=== PATIENT | male | born 1970 | race Hispanic/Latino ===

== ENCOUNTER 2021-07-21 18:20 | Inpatient (IN) | payer BC, OTHER ==
[~2021-07-21] VITALS: Ht 170.2 cm; Wt 145.6 kg
[2021-07-21] MEDS ORDERED: CEFTRIAXONE 2 GM in SODIUM CHLORIDE 0.9% 100 ML IV SCH (19:30)
[2021-07-21 19:43] LABS: BASOPHILS % 0.2 % (0.0-1.0); HEMOGLOBIN 15.5 g/dL (14.0-18.0); LYMPHOCYTES # (AUTO) 1.2 (1.0-3.2); MEAN CORPUSCULAR HEMOGLOBIN 30.8 pg (28-32); MEAN CORPUSCULAR HGB CONC 35.2 g/dL (31-35); MEAN CORPUSCULAR VOLUME 87.3 fL (81-99); MONOCYTES # (AUTO) 0.6 (0.2-0.8); MONOCYTES % 4.9 % (4.4-11.3); NEUTROPHILS # (AUTO) 10.2 (2.1-6.9); NEUTROPHILS % 82.6 % (38.7-80.0); PLATELET COUNT 242 x10e3/uL (140-360); RED BLOOD COUNT 5.04 x10e6/uL (4.3-5.7); RED CELL DISTRIBUTION WIDTH 12.8 % (11.7-14.4)
[2021-07-21] MEDS ORDERED: REMDESIVIR 200MG 200 MG IV ONE (20:00)
[2021-07-21 20:08] LABS: ALBUMIN 2.7 g/dL (3.5-5.0); ALBUMIN/GLOBULIN RATIO 0.6 (0.8-2.0); ANION GAP 20.4 mmol/L (8-16); CALCIUM 9.2 mg/dL (8.4-10.2); CREATININE, SERUM 0.79 mg/dL (0.72-1.25); POTASSIUM 3.4 mmol/L (3.5-5.1)
[2021-07-21 20:14] LABS: CREATINE KINASE MB 3.2 ng/mL (0-5.0)
[2021-07-21] MEDS ORDERED: ACETAMINOPHEN 325 MG TAB ONE (20:22)
[2021-07-21] MEDS ORDERED: ACETAMINOPHEN 325 MG TAB PO ONE (20:30)
[2021-07-21] MEDS ORDERED: ONDANSETRON HCL INJ 2MG/ML 2ML 2 MG/ML VIAL IV PRN (22:15)
[2021-07-22] MEDS ORDERED: POTASSIUM CHLORIDE 20 MEQ TAB CR PO STA (03:00)
[2021-07-22] MEDS ORDERED: METHYLPREDNISOLONE SOD SUCC 125 MG/2ML VIAL IV ONE (03:00)
[2021-07-22] MEDS ORDERED: SODIUM CHLORIDE 0.9% IV ONE (03:15)
[2021-07-22] MEDS ORDERED: METHYLPREDNISOLONE SOD SUCC IV ONE (03:15)
[2021-07-22] MEDS: ACETAMINOPHEN 325 MG TAB PO PRN ×2 (04:54→20:04)
[2021-07-22] MEDS: GUAIFENESIN/CODEINE 10 ML CUP PO PRN (04:55)
[2021-07-22 06:36] LABS: BASOPHILS % 0.1 % (0.0-1.0); HEMATOCRIT 39.5 % (38.2-49.6); LYMPHOCYTES # (AUTO) 1.4 (1.0-3.2); MEAN CORPUSCULAR HEMOGLOBIN 30.8 pg (28-32); MEAN CORPUSCULAR HGB CONC 35.4 g/dL (31-35); MONOCYTES # (AUTO) 0.4 (0.2-0.8); MONOCYTES % 4.1 % (4.4-11.3); NEUTROPHILS # (AUTO) 8.7 (2.1-6.9); NEUTROPHILS % 81.8 % (38.7-80.0); PLATELET COUNT 240 x10e3/uL (140-360); RED BLOOD COUNT 4.54 x10e6/uL (4.3-5.7); RED CELL DISTRIBUTION WIDTH 13.1 % (11.7-14.4)
[2021-07-22 06:54] LABS: ALBUMIN 2.4 g/dL (3.5-5.0); ALBUMIN/GLOBULIN RATIO 0.6 (0.8-2.0); ANION GAP 16.5 mmol/L (8-16); CALCIUM 8.2 mg/dL (8.4-10.2); CREATININE, SERUM 0.7 mg/dL (0.72-1.25); POTASSIUM 3.5 mmol/L (3.5-5.1)
[2021-07-22 07:38] LABS: FERRITIN 1240.25 ng/mL (21.81-274.66)
[2021-07-22] MEDS: ASCORBIC ACID 500 MG TAB PO SCH ×2 (08:43→16:21)
[2021-07-22] MEDS: ENOXAPARIN SOD INJ 60 MG/0.6 ML SYR SC SCH ×2 (08:43→21:59)
[2021-07-22] MEDS: ZINC SULFATE 50 MG CAP PO SCH (08:43)
[2021-07-22] MEDS: METHYLPREDNISOLONE SOD SUCC 125 MG/2ML VIAL IV SCH ×3 (13:07→21:59)
[2021-07-22] MEDS: REMDESIVIR 100MG 100 MG IV SCH (15:01)
[2021-07-22] MEDS: CEFTRIAXONE 2 GM in SODIUM CHLORIDE 0.9% 100 ML IV SCH (21:59)
[2021-07-23] MEDS: GUAIFENESIN/CODEINE 10 ML CUP PO PRN ×2 (01:11→21:59)
[2021-07-23] MEDS: METHYLPREDNISOLONE SOD SUCC 125 MG/2ML VIAL IV SCH (04:58)
[2021-07-23] MEDS: ASCORBIC ACID 500 MG TAB PO SCH ×2 (09:00→17:36)
[2021-07-23] MEDS: ZINC SULFATE 50 MG CAP PO SCH (09:25)
[2021-07-23] MEDS: ENOXAPARIN SOD INJ 60 MG/0.6 ML SYR SC SCH ×2 (09:25→21:59)
[2021-07-23] MEDS: REMDESIVIR 100MG 100 MG IV SCH (14:36)
[2021-07-23] MEDS: BARICITINIB 2 MG TABLET PO SCH (14:36)
[2021-07-23] MEDS: CEFTRIAXONE 2 GM in SODIUM CHLORIDE 0.9% 100 ML IV SCH (21:59)
[2021-07-23] MEDS: ACETAMINOPHEN 325 MG TAB PO PRN (21:59)
[2021-07-24 05:56] LABS: BASOPHILS % 0.1 % (0.0-1.0); HEMATOCRIT 39.1 % (38.2-49.6); HEMOGLOBIN 13.4 g/dL (14.0-18.0); LYMPHOCYTES # (AUTO) 1.3 (1.0-3.2); LYMPHOCYTES % 8.5 % (18.0-39.1); MEAN CORPUSCULAR HEMOGLOBIN 30.7 pg (28-32); MEAN CORPUSCULAR HGB CONC 34.3 g/dL (31-35); MEAN CORPUSCULAR VOLUME 89.7 fL (81-99); MONOCYTES # (AUTO) 0.8 (0.2-0.8); MONOCYTES % 5.4 % (4.4-11.3); NEUTROPHILS # (AUTO) 12.8 (2.1-6.9); NEUTROPHILS % 84.9 % (38.7-80.0); PLATELET COUNT 212 x10e3/uL (140-360); RED BLOOD COUNT 4.36 x10e6/uL (4.3-5.7); RED CELL DISTRIBUTION WIDTH 13.1 % (11.7-14.4)
[2021-07-24 06:17] LABS: ALBUMIN 2.3 g/dL (3.5-5.0); ALBUMIN/GLOBULIN RATIO 0.6 (0.8-2.0); ANION GAP 15.6 mmol/L (8-16); CREATININE, SERUM 0.66 mg/dL (0.72-1.25); POTASSIUM 3.6 mmol/L (3.5-5.1)
[2021-07-24] MEDS: METHYLPREDNISOLONE SOD SUCC 125 MG/2ML VIAL IV SCH (09:17)
[2021-07-24] MEDS: ENOXAPARIN SOD INJ 60 MG/0.6 ML SYR SC SCH ×2 (09:17→22:15)
[2021-07-24] MEDS: ZINC SULFATE 50 MG CAP PO SCH (09:17)
[2021-07-24] MEDS: BARICITINIB 2 MG TABLET PO SCH (09:17)
[2021-07-24] MEDS: ASCORBIC ACID 500 MG TAB PO SCH ×2 (09:17→17:29)
[2021-07-24] MEDS: REMDESIVIR 100MG 100 MG IV SCH (17:29)
[2021-07-24] MEDS ORDERED: CEFTRIAXONE 1 GM in SODIUM CHLORIDE 0.9% 50ML 50 ML IV SCH (21:00)
[2021-07-24] MEDS: GUAIFENESIN/CODEINE 10 ML CUP PO PRN (23:00)
[2021-07-25 07:09] LABS: BASOPHILS % 0.2 % (0.0-1.0); EOSINOPHILS % 0.1 % (0.0-6.0); HEMATOCRIT 41.5 % (38.2-49.6); HEMOGLOBIN 14.3 g/dL (14.0-18.0); LYMPHOCYTES # (AUTO) 1.2 (1.0-3.2); LYMPHOCYTES % 8.2 % (18.0-39.1); MEAN CORPUSCULAR HEMOGLOBIN 30.9 pg (28-32); MEAN CORPUSCULAR HGB CONC 34.5 g/dL (31-35); MEAN CORPUSCULAR VOLUME 89.6 fL (81-99); MONOCYTES # (AUTO) 0.3 (0.2-0.8); MONOCYTES % 1.9 % (4.4-11.3); NEUTROPHILS # (AUTO) 12.5 (2.1-6.9); NEUTROPHILS % 87.8 % (38.7-80.0); PLATELET COUNT 142 x10e3/uL (140-360); RED BLOOD COUNT 4.63 x10e6/uL (4.3-5.7); RED CELL DISTRIBUTION WIDTH 13.4 % (11.7-14.4)
[2021-07-25 07:22] LABS: ALBUMIN 2.9 g/dL (3.5-5.0); ALBUMIN/GLOBULIN RATIO 0.8 (0.8-2.0); ANION GAP 13.8 mmol/L (8-16); CALCIUM 7.7 mg/dL (8.4-10.2); CREATININE, SERUM 0.69 mg/dL (0.72-1.25); POTASSIUM 3.8 mmol/L (3.5-5.1)
[2021-07-25] MEDS: METHYLPREDNISOLONE SOD SUCC 125 MG/2ML VIAL IV SCH (08:24)
[2021-07-25] MEDS: BARICITINIB 2 MG TABLET PO SCH (08:24)
[2021-07-25] MEDS: ZINC SULFATE 50 MG CAP PO SCH (08:24)
[2021-07-25] MEDS: ENOXAPARIN SOD INJ 60 MG/0.6 ML SYR SC SCH ×2 (08:24→23:00)
[2021-07-25] MEDS: ASCORBIC ACID 500 MG TAB PO SCH ×2 (08:24→17:50)
[2021-07-25] MEDS: REMDESIVIR 100MG 100 MG IV SCH (15:17)
[2021-07-25] MEDS: GUAIFENESIN/CODEINE 5 ML LIQD PO PRN (23:32)
[2021-07-26] VITALS (13 sets, daily range): BP systolic 97–138; BP diastolic 55–98
[2021-07-26] MEDS ORDERED: ACETAMINOPHEN 1000 MG/100 ML 100 ML IV ONE (01:28)
[2021-07-26] MEDS ORDERED: ACETAMINOPHEN 1000 MG/100 ML IV STA ×2 (02:05→11:43)
[2021-07-26 08:36] LABS: BASOPHILS % 0.2 % (0.0-1.0); EOSINOPHILS # (AUTO) 0.1 (0.0-0.4); EOSINOPHILS % 0.7 % (0.0-6.0); HEMATOCRIT 42.9 % (38.2-49.6); HEMOGLOBIN 14.8 g/dL (14.0-18.0); LYMPHOCYTES # (AUTO) 0.9 (1.0-3.2); LYMPHOCYTES % 5.6 % (18.0-39.1); MEAN CORPUSCULAR HEMOGLOBIN 31.2 pg (28-32); MEAN CORPUSCULAR HGB CONC 34.5 g/dL (31-35); MEAN CORPUSCULAR VOLUME 90.5 fL (81-99); MONOCYTES # (AUTO) 0.2 (0.2-0.8); MONOCYTES % 1.2 % (4.4-11.3); NEUTROPHILS % 90.4 % (38.7-80.0); PLATELET COUNT 149 x10e3/uL (140-360); RED BLOOD COUNT 4.74 x10e6/uL (4.3-5.7); RED CELL DISTRIBUTION WIDTH 13.2 % (11.7-14.4)
[2021-07-26] MEDS: BARICITINIB 2 MG TABLET PO SCH (09:00)
[2021-07-26] MEDS: METHYLPREDNISOLONE SOD SUCC 125 MG/2ML VIAL IV SCH (09:51)
[2021-07-26] MEDS: ASCORBIC ACID 500 MG TAB PO SCH ×2 (09:51→18:14)
[2021-07-26] MEDS: ZINC SULFATE 50 MG CAP PO SCH (09:51)
[2021-07-26] MEDS: ENOXAPARIN SOD INJ 60 MG/0.6 ML SYR SC SCH ×2 (09:51→20:54)
[2021-07-26] MEDS: PIPERACILLIN/TAZOBACTAM 3.375 GM in SODIUM CHLORIDE 0.9% 50ML 50 ML IV SCH ×2 (14:04→18:14)
[2021-07-26] MEDS: DEXMEDETOMIDINE 200MCG/NS 50ML 50 ML IV SCH ×3 (14:04→21:45)
[2021-07-27] VITALS (25 sets, daily range): BP systolic 106–141; BP diastolic 54–97
[2021-07-27] MEDS: PIPERACILLIN/TAZOBACTAM 3.375 GM in SODIUM CHLORIDE 0.9% 50ML 50 ML IV SCH ×4 (00:04→18:24)
[2021-07-27] MEDS: DEXMEDETOMIDINE 200MCG/NS 50ML 50 ML IV SCH ×8 (01:35→23:25)
[2021-07-27 05:48] LABS: BASOPHILS % 0.1 % (0.0-1.0); EOSINOPHILS # (AUTO) 0.1 (0.0-0.4); EOSINOPHILS % 0.5 % (0.0-6.0); HEMATOCRIT 42.6 % (38.2-49.6); HEMOGLOBIN 14.6 g/dL (14.0-18.0); LYMPHOCYTES # (AUTO) 0.8 (1.0-3.2); LYMPHOCYTES % 4.6 % (18.0-39.1); MEAN CORPUSCULAR HGB CONC 34.3 g/dL (31-35); MEAN CORPUSCULAR VOLUME 90.4 fL (81-99); MONOCYTES # (AUTO) 0.3 (0.2-0.8); MONOCYTES % 1.4 % (4.4-11.3); NEUTROPHILS % 92.1 % (38.7-80.0); PLATELET COUNT 169 x10e3/uL (140-360); RED BLOOD COUNT 4.71 x10e6/uL (4.3-5.7); RED CELL DISTRIBUTION WIDTH 13.2 % (11.7-14.4)
[2021-07-27 06:39] LABS: ANION GAP 17.6 mmol/L (8-16); CALCIUM 7.8 mg/dL (8.4-10.2); CREATININE, SERUM 0.59 mg/dL (0.72-1.25); POTASSIUM 4.6 mmol/L (3.5-5.1)
[2021-07-27 08:54] LABS: LYMPHOCYTES % (MANUAL) 1 % (19-48); MONOCYTES % (MANUAL) 1 % (3.4-9.0); NEUTROPHILS % (MANUAL) 98 % (40-74)
[2021-07-27 08:55] LABS: PLATELET ESTIMATE ADEQUATE; PLATELET MORPHOLOGY COMMENT NORMAL; RBC MORPHOLOGY COMMENT NORMAL
[2021-07-27] MEDS ORDERED: DEXAMETHASONE SOD PHOS 10 MG/1 ML VIAL IV SCH (09:00)
[2021-07-27] MEDS: METHYLPREDNISOLONE SOD SUCC 125 MG/2ML VIAL IV SCH (09:23)
[2021-07-27] MEDS: BARICITINIB 2 MG TABLET PO SCH (09:23)
[2021-07-27] MEDS: ENOXAPARIN SOD INJ 60 MG/0.6 ML SYR SC SCH ×2 (09:24→20:00)
[2021-07-27] MEDS: ZINC SULFATE 50 MG CAP PO SCH (09:24)
[2021-07-27] MEDS: ASCORBIC ACID 500 MG TAB PO SCH ×2 (09:24→16:40)
[2021-07-27] MEDS: ACETAMINOPHEN 325 MG TAB PO PRN (13:37)
[2021-07-28] VITALS (23 sets, daily range): BP systolic 88–138; BP diastolic 43–85
[2021-07-28] MEDS: PIPERACILLIN/TAZOBACTAM 3.375 GM in SODIUM CHLORIDE 0.9% 50ML 50 ML IV SCH ×4 (00:03→17:07)
[2021-07-28] MEDS: GUAIFENESIN/CODEINE 5 ML LIQD PO PRN ×3 (03:55→21:05)
[2021-07-28 05:53] LABS: BASOPHILS % 0.1 % (0.0-1.0); EOSINOPHILS % 0.1 % (0.0-6.0); HEMATOCRIT 44.2 % (38.2-49.6); HEMOGLOBIN 14.9 g/dL (14.0-18.0); LYMPHOCYTES # (AUTO) 0.8 (1.0-3.2); MEAN CORPUSCULAR HEMOGLOBIN 30.3 pg (28-32); MEAN CORPUSCULAR HGB CONC 33.7 g/dL (31-35); MONOCYTES # (AUTO) 0.4 (0.2-0.8); MONOCYTES % 2.3 % (4.4-11.3); NEUTROPHILS # (AUTO) 13.8 (2.1-6.9); NEUTROPHILS % 91.3 % (38.7-80.0); PLATELET COUNT 195 x10e3/uL (140-360); RED BLOOD COUNT 4.91 x10e6/uL (4.3-5.7)
[2021-07-28] MEDS: BARICITINIB 2 MG TABLET PO SCH (08:55)
[2021-07-28] MEDS: ZINC SULFATE 50 MG CAP PO SCH (08:55)
[2021-07-28] MEDS: ENOXAPARIN SOD INJ 60 MG/0.6 ML SYR SC SCH ×2 (08:55→21:04)
[2021-07-28] MEDS: ASCORBIC ACID 500 MG TAB PO SCH ×2 (08:55→16:38)
[2021-07-28] MEDS: METHYLPREDNISOLONE SOD SUCC 125 MG/2ML VIAL IV SCH (08:55)
[2021-07-28 10:06] LABS: ANION GAP 15.5 mmol/L (8-16); CREATININE, SERUM 0.61 mg/dL (0.72-1.25); POTASSIUM 4.5 mmol/L (3.5-5.1)
[2021-07-28] MEDS: DEXMEDETOMIDINE 100 ML IV PRN (14:15)
[2021-07-28] MEDS ORDERED: SODIUM CHLORIDE 0.9% 100 ML ONE (20:57)
[2021-07-29] VITALS (23 sets, daily range): BP systolic 82–135; BP diastolic 47–94
[2021-07-29] MEDS: PIPERACILLIN/TAZOBACTAM 3.375 GM in SODIUM CHLORIDE 0.9% 50ML 50 ML IV SCH ×4 (00:08→17:00)
[2021-07-29] MEDS: GUAIFENESIN/CODEINE 10 ML CUP PO PRN ×2 (05:05→20:48)
[2021-07-29] MEDS ORDERED: GUAIFENESIN/CODEINE 5 ML LIQD ONE ×2 (05:09→20:41)
[2021-07-29] MEDS: DEXMEDETOMIDINE 100 ML IV PRN (05:43)
[2021-07-29 05:57] LABS: BASOPHILS % 0.1 % (0.0-1.0); EOSINOPHILS # (AUTO) 0.1 (0.0-0.4); EOSINOPHILS % 0.6 % (0.0-6.0); HEMATOCRIT 42.8 % (38.2-49.6); HEMOGLOBIN 14.6 g/dL (14.0-18.0); LYMPHOCYTES # (AUTO) 1.1 (1.0-3.2); LYMPHOCYTES % 6.7 % (18.0-39.1); MEAN CORPUSCULAR HEMOGLOBIN 30.8 pg (28-32); MEAN CORPUSCULAR HGB CONC 34.1 g/dL (31-35); MEAN CORPUSCULAR VOLUME 90.3 fL (81-99); MONOCYTES # (AUTO) 0.4 (0.2-0.8); MONOCYTES % 2.4 % (4.4-11.3); NEUTROPHILS # (AUTO) 15.2 (2.1-6.9); NEUTROPHILS % 89.2 % (38.7-80.0); PLATELET COUNT 210 x10e3/uL (140-360); RED BLOOD COUNT 4.74 x10e6/uL (4.3-5.7); RED CELL DISTRIBUTION WIDTH 12.9 % (11.7-14.4)
[2021-07-29 06:45] LABS: ALBUMIN 2.6 g/dL (3.5-5.0); ALBUMIN/GLOBULIN RATIO 0.7 (0.8-2.0); ANION GAP 14.3 mmol/L (8-16); CREATININE, SERUM 0.6 mg/dL (0.72-1.25); POTASSIUM 4.3 mmol/L (3.5-5.1)
[2021-07-29] MEDS: BARICITINIB 2 MG TABLET PO SCH (08:30)
[2021-07-29] MEDS: METHYLPREDNISOLONE SOD SUCC 125 MG/2ML VIAL IV SCH (08:30)
[2021-07-29] MEDS: ASCORBIC ACID 500 MG TAB PO SCH ×2 (08:31→16:50)
[2021-07-29] MEDS: ZINC SULFATE 50 MG CAP PO SCH (08:31)
[2021-07-29] MEDS: ENOXAPARIN SOD INJ 60 MG/0.6 ML SYR SC SCH ×2 (08:31→20:48)
[2021-07-29] MEDS: ACETAMINOPHEN 325 MG TAB PO PRN ×2 (09:24→20:48)
[2021-07-30] VITALS (24 sets, daily range): BP systolic 94–139; BP diastolic 52–82
[2021-07-30] MEDS: PIPERACILLIN/TAZOBACTAM 3.375 GM in SODIUM CHLORIDE 0.9% 50ML 50 ML IV SCH ×4 (00:17→18:05)
[2021-07-30] MEDS ORDERED: GUAIFENESIN/CODEINE 5 ML LIQD ONE (04:31)
[2021-07-30] MEDS: GUAIFENESIN/CODEINE 10 ML CUP PO PRN (05:00)
[2021-07-30 06:22] LABS: BASOPHILS % 0.1 % (0.0-1.0); EOSINOPHILS # (AUTO) 0.1 (0.0-0.4); EOSINOPHILS % 0.9 % (0.0-6.0); HEMATOCRIT 43.2 % (38.2-49.6); HEMOGLOBIN 14.6 g/dL (14.0-18.0); LYMPHOCYTES # (AUTO) 0.9 (1.0-3.2); LYMPHOCYTES % 6.1 % (18.0-39.1); MEAN CORPUSCULAR HEMOGLOBIN 30.4 pg (28-32); MEAN CORPUSCULAR HGB CONC 33.8 g/dL (31-35); MONOCYTES # (AUTO) 0.5 (0.2-0.8); MONOCYTES % 3.1 % (4.4-11.3); NEUTROPHILS # (AUTO) 13.7 (2.1-6.9); NEUTROPHILS % 88.6 % (38.7-80.0); PLATELET COUNT 215 x10e3/uL (140-360); RED CELL DISTRIBUTION WIDTH 12.8 % (11.7-14.4)
[2021-07-30] MEDS: DEXMEDETOMIDINE 100 ML IV PRN ×2 (06:24→19:52)
[2021-07-30 06:34] LABS: ANION GAP 13.3 mmol/L (8-16); CREATININE, SERUM 0.55 mg/dL (0.72-1.25); POTASSIUM 4.3 mmol/L (3.5-5.1)
[2021-07-30] MEDS: ASCORBIC ACID 500 MG TAB PO SCH ×2 (08:26→18:05)
[2021-07-30] MEDS: ENOXAPARIN SOD INJ 60 MG/0.6 ML SYR SC SCH ×2 (08:26→20:52)
[2021-07-30] MEDS: ZINC SULFATE 50 MG CAP PO SCH (08:26)
[2021-07-30] MEDS: BARICITINIB 2 MG TABLET PO SCH (08:26)
[2021-07-30] MEDS ORDERED: SODIUM CHLORIDE 0.9% 50ML 50 ML ONE (12:37)
[2021-07-30] MEDS ORDERED: WATER STERILE 10 ML VIAL ONE (13:00)
[2021-07-30] MEDS ORDERED: SUCCINYLCHOLINE CHLORIDE 20 MG/ML 10ML VIAL ONE (13:00)
[2021-07-30] MEDS ORDERED: VECURONIUM BROMIDE FOR INJ 20 MG VIAL ONE (13:00)
[2021-07-30] MEDS ORDERED: ETOMIDATE 2 MG/ML 10 ML INJ IV ONE (13:00)
[2021-07-30] MEDS ORDERED: GUAIFENESIN/CODEINE 5 ML LIQD PO PRN (13:45)
[2021-07-30] MEDS: ACETAMINOPHEN 325 MG TAB PO PRN (20:53)
[2021-07-31] VITALS (28 sets, daily range): BP systolic 88–135; BP diastolic 50–88
[2021-07-31] MEDS: PIPERACILLIN/TAZOBACTAM 3.375 GM in SODIUM CHLORIDE 0.9% 50ML 50 ML IV SCH ×5 (00:01→23:38)
[2021-07-31 06:05] LABS: BASOPHILS % 0.1 % (0.0-1.0); EOSINOPHILS # (AUTO) 0.2 (0.0-0.4); EOSINOPHILS % 1.1 % (0.0-6.0); HEMOGLOBIN 15.8 g/dL (14.0-18.0); LYMPHOCYTES # (AUTO) 1.2 (1.0-3.2); MEAN CORPUSCULAR HEMOGLOBIN 30.6 pg (28-32); MEAN CORPUSCULAR HGB CONC 34.3 g/dL (31-35); MEAN CORPUSCULAR VOLUME 89.1 fL (81-99); MONOCYTES # (AUTO) 0.4 (0.2-0.8); MONOCYTES % 2.1 % (4.4-11.3); NEUTROPHILS # (AUTO) 14.7 (2.1-6.9); NEUTROPHILS % 88.3 % (38.7-80.0); PLATELET COUNT 226 x10e3/uL (140-360); RED BLOOD COUNT 5.16 x10e6/uL (4.3-5.7); RED CELL DISTRIBUTION WIDTH 12.8 % (11.7-14.4)
[2021-07-31 06:16] LABS: ANION GAP 13.2 mmol/L (8-16); CREATININE, SERUM 0.56 mg/dL (0.72-1.25); POTASSIUM 4.2 mmol/L (3.5-5.1)
[2021-07-31] MEDS: DEXMEDETOMIDINE 100 ML IV PRN (08:11)
[2021-07-31] MEDS: ENOXAPARIN SOD INJ 60 MG/0.6 ML SYR SC SCH ×2 (08:44→20:16)
[2021-07-31] MEDS: ZINC SULFATE 50 MG CAP PO SCH (08:44)
[2021-07-31] MEDS: ASCORBIC ACID 500 MG TAB PO SCH ×2 (08:44→16:47)
[2021-07-31] MEDS: BARICITINIB 2 MG TABLET PO SCH (08:44)
[2021-07-31] MEDS ORDERED: ROCURONIUM BROMIDE 1,250 MG in SODIUM CHLORIDE 0.9% 250ML 125 ML IV SCH (13:00)
[2021-07-31] MEDS: FENTANYL 2000MCG/NS 250 250 ML IV SCH ×2 (13:33→20:04)
[2021-07-31] MEDS: ROCURONIUM 1250MG/NS 250 250 ML IV SCH (13:34)
[2021-07-31] MEDS: MIDAZOLAM HCL 5MG/ML 10ML VIAL 100 ML IV PRN ×3 (13:34→23:39)
[2021-07-31 17:00] LABS: ABG HCO3 26 mmol/L (22-26); ABG PCO2 47 mmHg (35-45); ABG PH 7.35 (7.35-7.45); ABG PO2 95 mmHg (80-105); ABG TCO2 27
[2021-07-31] MEDS ORDERED: LACTATED RINGER'S 1,000 ML ONE (18:35)
[2021-07-31] MEDS ORDERED: LACTATED RINGER'S 500 ML IV ONE (18:45)
[2021-08-01] VITALS (25 sets, daily range): BP systolic 95–153; BP diastolic 58–74
[2021-08-01] MEDS: FENTANYL 2000MCG/NS 250 250 ML IV SCH ×3 (02:27→16:29)
[2021-08-01] MEDS: MIDAZOLAM HCL 5MG/ML 10ML VIAL 100 ML IV PRN ×4 (04:12→20:07)
[2021-08-01 06:06] LABS: ALBUMIN 2.4 g/dL (3.5-5.0); ALBUMIN/GLOBULIN RATIO 0.6 (0.8-2.0); CALCIUM 8.1 mg/dL (8.4-10.2); CREATININE, SERUM 0.63 mg/dL (0.72-1.25)
[2021-08-01] MEDS: PIPERACILLIN/TAZOBACTAM 3.375 GM in SODIUM CHLORIDE 0.9% 50ML 50 ML IV SCH ×4 (06:17→23:59)
[2021-08-01 06:23] LABS: BASOPHILS % 0.2 % (0.0-1.0); EOSINOPHILS # (AUTO) 0.1 (0.0-0.4); EOSINOPHILS % 0.8 % (0.0-6.0); HEMATOCRIT 44.1 % (38.2-49.6); HEMOGLOBIN 14.9 g/dL (14.0-18.0); LYMPHOCYTES # (AUTO) 1.2 (1.0-3.2); LYMPHOCYTES % 6.4 % (18.0-39.1); MEAN CORPUSCULAR HEMOGLOBIN 30.8 pg (28-32); MEAN CORPUSCULAR HGB CONC 33.8 g/dL (31-35); MEAN CORPUSCULAR VOLUME 91.3 fL (81-99); MONOCYTES # (AUTO) 0.6 (0.2-0.8); MONOCYTES % 3.3 % (4.4-11.3); NEUTROPHILS # (AUTO) 15.7 (2.1-6.9); NEUTROPHILS % 86.9 % (38.7-80.0); PLATELET COUNT 221 x10e3/uL (140-360); RED BLOOD COUNT 4.83 x10e6/uL (4.3-5.7); RED CELL DISTRIBUTION WIDTH 13.2 % (11.7-14.4)
[2021-08-01] MEDS: ENOXAPARIN SOD INJ 60 MG/0.6 ML SYR SC SCH ×2 (08:15→22:00)
[2021-08-01] MEDS: ZINC SULFATE 50 MG CAP PO SCH (08:15)
[2021-08-01] MEDS: ASCORBIC ACID 500 MG TAB PO SCH ×2 (08:15→16:29)
[2021-08-01] MEDS: BARICITINIB 2 MG TABLET PO SCH (08:15)
[2021-08-01] MEDS: ROCURONIUM 1250MG/NS 250 250 ML IV SCH (08:29)
[2021-08-01 08:41] LABS: ABG PH 7.37 (7.35-7.45)
[2021-08-01 08:42] LABS: ABG HCO3 27 mmol/L (22-26); ABG PCO2 47 mmHg (35-45); ABG PO2 126 mmHg (80-105); ABG TCO2 28
[2021-08-01] MEDS ORDERED: LACTATED RINGER'S 500 ML IV ONE (19:15)
[2021-08-02] VITALS (25 sets, daily range): BP systolic 100–171; BP diastolic 57–97
[2021-08-02] MEDS: MIDAZOLAM HCL 5MG/ML 10ML VIAL 100 ML IV PRN ×5 (01:35→23:09)
[2021-08-02 05:50] LABS: BASOPHILS % 0.2 % (0.0-1.0); EOSINOPHILS # (AUTO) 0.2 (0.0-0.4); EOSINOPHILS % 1.1 % (0.0-6.0); HEMATOCRIT 45.2 % (38.2-49.6); HEMOGLOBIN 14.7 g/dL (14.0-18.0); LYMPHOCYTES # (AUTO) 1.9 (1.0-3.2); LYMPHOCYTES % 10.9 % (18.0-39.1); MEAN CORPUSCULAR HEMOGLOBIN 31.1 pg (28-32); MEAN CORPUSCULAR HGB CONC 32.5 g/dL (31-35); MEAN CORPUSCULAR VOLUME 95.6 fL (81-99); MONOCYTES # (AUTO) 0.9 (0.2-0.8); MONOCYTES % 4.9 % (4.4-11.3); NEUTROPHILS # (AUTO) 13.9 (2.1-6.9); NEUTROPHILS % 79.3 % (38.7-80.0); PLATELET COUNT 244 x10e3/uL (140-360); RED BLOOD COUNT 4.73 x10e6/uL (4.3-5.7); RED CELL DISTRIBUTION WIDTH 13.6 % (11.7-14.4)
[2021-08-02] MEDS: PIPERACILLIN/TAZOBACTAM 3.375 GM in SODIUM CHLORIDE 0.9% 50ML 50 ML IV SCH ×3 (06:03→17:37)
[2021-08-02 06:28] LABS: ALBUMIN 2.5 g/dL (3.5-5.0); ALBUMIN/GLOBULIN RATIO 0.6 (0.8-2.0); ANION GAP 15.3 mmol/L (8-16); CALCIUM 7.8 mg/dL (8.4-10.2); CREATININE, SERUM 0.59 mg/dL (0.72-1.25); POTASSIUM 4.3 mmol/L (3.5-5.1)
[2021-08-02] MEDS: ROCURONIUM 1250MG/NS 250 250 ML IV SCH ×2 (06:50→22:30)
[2021-08-02] MEDS: FENTANYL 2000MCG/NS 250 250 ML IV SCH ×2 (07:51→21:01)
[2021-08-02] MEDS: BARICITINIB 2 MG TABLET PO SCH (08:29)
[2021-08-02] MEDS: ASCORBIC ACID 500 MG TAB PO SCH ×2 (08:29→17:37)
[2021-08-02] MEDS: ZINC SULFATE 50 MG CAP PO SCH ×2 (08:30→13:21)
[2021-08-02] MEDS: ENOXAPARIN SOD INJ 60 MG/0.6 ML SYR SC SCH ×2 (08:30→21:04)
[2021-08-02 09:25] LABS: ABG PH 7.19 (7.35-7.45)
[2021-08-02 09:26] LABS: ABG PCO2 83 mmHg (35-45); ABG PO2 109 mmHg (80-105)
[2021-08-02 09:27] LABS: ABG HCO3 32 mmol/L (22-26); ABG TCO2 34
[2021-08-02 17:33] LABS: ABG HCO3 32 mmol/L (22-26); ABG PCO2 47 mmHg (35-45); ABG PH 7.44 (7.35-7.45); ABG PO2 110 mmHg (80-105); ABG TCO2 33
[2021-08-03] VITALS (23 sets, daily range): BP systolic 98–162; BP diastolic 57–98
[2021-08-03] MEDS ORDERED: SODIUM CHLORIDE 0.9% 50ML 50 ML ONE (00:19)
[2021-08-03] MEDS: PIPERACILLIN/TAZOBACTAM 3.375 GM in SODIUM CHLORIDE 0.9% 50ML 50 ML IV SCH ×4 (00:33→18:00)
[2021-08-03] MEDS: FENTANYL 2000MCG/NS 250 250 ML IV SCH ×2 (04:01→17:13)
[2021-08-03] MEDS: MIDAZOLAM HCL 5MG/ML 10ML VIAL 100 ML IV PRN ×4 (04:02→17:12)
[2021-08-03] MEDS: ROCURONIUM 1250MG/NS 250 250 ML IV SCH (04:13)
[2021-08-03 06:45] LABS: BASOPHILS # (AUTO) 0.1 (0.0-0.1); BASOPHILS % 0.3 % (0.0-1.0); EOSINOPHILS # (AUTO) 0.2 (0.0-0.4); EOSINOPHILS % 1.3 % (0.0-6.0); LYMPHOCYTES # (AUTO) 1.4 (1.0-3.2); MEAN CORPUSCULAR HEMOGLOBIN 31.1 pg (28-32); MEAN CORPUSCULAR HGB CONC 33.3 g/dL (31-35); MEAN CORPUSCULAR VOLUME 93.3 fL (81-99); MONOCYTES # (AUTO) 0.8 (0.2-0.8); MONOCYTES % 5.3 % (4.4-11.3); NEUTROPHILS # (AUTO) 11.4 (2.1-6.9); PLATELET COUNT 280 x10e3/uL (140-360); RED CELL DISTRIBUTION WIDTH 13.9 % (11.7-14.4)
[2021-08-03 07:15] LABS: ALBUMIN 1.8 g/dL (3.5-5.0); ALBUMIN/GLOBULIN RATIO 0.4 (0.8-2.0); ANION GAP 13.8 mmol/L (8-16); CALCIUM 7.9 mg/dL (8.4-10.2); CREATININE, SERUM 0.55 mg/dL (0.72-1.25); POTASSIUM 3.8 mmol/L (3.5-5.1)
[2021-08-03] MEDS: BARICITINIB 2 MG TABLET PO SCH (09:01)
[2021-08-03] MEDS: ASCORBIC ACID 500 MG TAB PO SCH ×2 (09:01→16:39)
[2021-08-03] MEDS: ENOXAPARIN SOD INJ 60 MG/0.6 ML SYR SC SCH ×2 (09:01→21:07)
[2021-08-03 09:06] LABS: ABG HCO3 30 mmol/L (22-26); ABG PCO2 41 mmHg (35-45); ABG PH 7.47 (7.35-7.45); ABG PO2 130 mmHg (80-105); ABG TCO2 31
[2021-08-03] MEDS ORDERED: PROPOFOL IV EMULSION 10MG/ML 100 ML IV SCH (13:45)
[2021-08-03] MEDS ORDERED: ALBUTEROL SULF 0.083% NEB SOLN 3 ML NEB NEB PRN (14:00)
[2021-08-03] MEDS ORDERED: METHYLPREDNISOLONE SOD SUCC 125 MG/2ML VIAL IV ONE (14:00)
[2021-08-03] MEDS ORDERED: PROPOFOL IV EMULSION 50 ML IV ONE (14:01)
[2021-08-03] MEDS: PROPOFOL IV EMULSION 50 ML IV SCH (14:02)
[2021-08-03 17:01] LABS: ABG HCO3 29 mmol/L (22-26); ABG PCO2 44 mmHg (35-45); ABG PH 7.44 (7.35-7.45); ABG PO2 66 mmHg (80-105); ABG TCO2 31
[2021-08-04] VITALS (25 sets, daily range): BP systolic 90–141; BP diastolic 41–72
[2021-08-04] MEDS: PIPERACILLIN/TAZOBACTAM 3.375 GM in SODIUM CHLORIDE 0.9% 50ML 50 ML IV SCH ×4 (00:36→17:11)
[2021-08-04] MEDS: ROCURONIUM 1250MG/NS 250 250 ML IV SCH (07:00)
[2021-08-04 07:32] LABS: ALBUMIN 1.7 g/dL (3.5-5.0); ALBUMIN/GLOBULIN RATIO 0.4 (0.8-2.0); ANION GAP 12.2 mmol/L (8-16); CALCIUM 7.8 mg/dL (8.4-10.2); CREATININE, SERUM 0.55 mg/dL (0.72-1.25); POTASSIUM 4.2 mmol/L (3.5-5.1)
[2021-08-04 08:54] LABS: BASOPHILS % 0.2 % (0.0-1.0); EOSINOPHILS % 0.1 % (0.0-6.0); HEMATOCRIT 34.7 % (38.2-49.6); LYMPHOCYTES # (AUTO) 1.2 (1.0-3.2); LYMPHOCYTES % 8.6 % (18.0-39.1); MEAN CORPUSCULAR HEMOGLOBIN 30.8 pg (28-32); MEAN CORPUSCULAR HGB CONC 32.6 g/dL (31-35); MEAN CORPUSCULAR VOLUME 94.6 fL (81-99); MONOCYTES # (AUTO) 0.5 (0.2-0.8); MONOCYTES % 3.6 % (4.4-11.3); NEUTROPHILS # (AUTO) 11.1 (2.1-6.9); PLATELET COUNT 215 x10e3/uL (140-360); RED BLOOD COUNT 3.67 x10e6/uL (4.3-5.7); RED CELL DISTRIBUTION WIDTH 13.8 % (11.7-14.4)
[2021-08-04 08:59] LABS: HEMOGLOBIN 11.3 g/dL (14.0-18.0)
[2021-08-04 09:15] LABS: ABG HCO3 26 mmol/L (22-26); ABG PCO2 41 mmHg (35-45); ABG PH 7.41 (7.35-7.45); ABG PO2 77 mmHg (80-105); ABG TCO2 27
[2021-08-04] MEDS: ENOXAPARIN SOD INJ 60 MG/0.6 ML SYR SC SCH ×2 (09:50→21:29)
[2021-08-04] MEDS: BARICITINIB 2 MG TABLET PO SCH (09:50)
[2021-08-04] MEDS: ASCORBIC ACID 500 MG TAB PO SCH ×2 (09:50→17:11)
[2021-08-04] MEDS: ZINC SULFATE 50 MG CAP PO SCH (09:50)
[2021-08-04] MEDS: MIDAZOLAM HCL 5MG/ML 10ML VIAL 100 ML IV PRN ×2 (09:51→18:49)
[2021-08-04] MEDS: FENTANYL 2000MCG/NS 250 250 ML IV SCH ×2 (13:50→21:50)
[2021-08-04] MEDS ORDERED: NOREPINEPHRINE 8 MG/D5W 250 ML 250 ML IV PRN (17:00)
[2021-08-04] MEDS: PROPOFOL IV EMULSION 50 ML IV SCH (18:48)
[2021-08-05] VITALS (25 sets, daily range): BP systolic 107–151; BP diastolic 42–83
[2021-08-05] MEDS: PIPERACILLIN/TAZOBACTAM 3.375 GM in SODIUM CHLORIDE 0.9% 50ML 50 ML IV SCH ×2 (00:22→06:02)
[2021-08-05] MEDS: MIDAZOLAM HCL 5MG/ML 10ML VIAL 100 ML IV PRN ×3 (01:54→19:40)
[2021-08-05] MEDS: FENTANYL 2000MCG/NS 250 250 ML IV SCH ×3 (05:50→21:44)
[2021-08-05 06:36] LABS: BASOPHILS # (AUTO) 0.1 (0.0-0.1); BASOPHILS % 0.5 % (0.0-1.0); EOSINOPHILS # (AUTO) 0.2 (0.0-0.4); EOSINOPHILS % 1.5 % (0.0-6.0); HEMATOCRIT 34.5 % (38.2-49.6); HEMOGLOBIN 11.4 g/dL (14.0-18.0); LYMPHOCYTES # (AUTO) 2.6 (1.0-3.2); LYMPHOCYTES % 17.8 % (18.0-39.1); MEAN CORPUSCULAR HEMOGLOBIN 31.4 pg (28-32); MONOCYTES # (AUTO) 0.7 (0.2-0.8); NEUTROPHILS # (AUTO) 9.6 (2.1-6.9); NEUTROPHILS % 66.1 % (38.7-80.0); PLATELET COUNT 216 x10e3/uL (140-360); RED BLOOD COUNT 3.63 x10e6/uL (4.3-5.7); RED CELL DISTRIBUTION WIDTH 13.9 % (11.7-14.4)
[2021-08-05 07:16] LABS: ALBUMIN 1.6 g/dL (3.5-5.0); ALBUMIN/GLOBULIN RATIO 0.5 (0.8-2.0); ANION GAP 11.8 mmol/L (8-16); CALCIUM 7.4 mg/dL (8.4-10.2); CREATININE, SERUM 0.5 mg/dL (0.72-1.25); POTASSIUM 3.8 mmol/L (3.5-5.1)
[2021-08-05] MEDS: ASCORBIC ACID 500 MG TAB PO SCH ×2 (08:42→09:49)
[2021-08-05] MEDS: BARICITINIB 2 MG TABLET PO SCH (08:42)
[2021-08-05] MEDS: ZINC SULFATE 50 MG CAP PO SCH (08:42)
[2021-08-05] MEDS: ENOXAPARIN SOD INJ 60 MG/0.6 ML SYR SC SCH ×2 (08:43→21:45)
[2021-08-05] MEDS ORDERED: ALBUMIN 25% 25GM 100ML 0.25 GM/ML BTL IV SCH (09:00)
[2021-08-05] MEDS: FUROSEMIDE INJ 10 MG/ML 4 ML VIAL IV SCH ×2 (09:48→21:45)
[2021-08-05 09:50] LABS: ABG PCO2 38 mmHg (35-45); ABG PH 7.42 (7.35-7.45)
[2021-08-05 09:51] LABS: ABG HCO3 25 mmol/L (22-26); ABG PO2 89 mmHg (80-105); ABG TCO2 26
[2021-08-05] MEDS: ALBUMIN 25% 25GM 100ML 100 ML IV SCH ×2 (09:51→10:46)
[2021-08-05] MEDS ORDERED: ALBUMIN 25% 12.5GM 50ML 100 ML IV SCH (14:00)
[2021-08-05] MEDS: PROPOFOL IV EMULSION 50 ML IV SCH ×2 (16:23→21:45)
[2021-08-06] VITALS (26 sets, daily range): BP systolic 102–127; BP diastolic 45–79
[2021-08-06] MEDS: MIDAZOLAM HCL 5MG/ML 10ML VIAL 100 ML IV PRN ×5 (00:48→22:37)
[2021-08-06] MEDS: FENTANYL 2000MCG/NS 250 250 ML IV SCH ×3 (05:49→19:12)
[2021-08-06 06:20] LABS: BASOPHILS # (AUTO) 0.1 (0.0-0.1); BASOPHILS % 0.4 % (0.0-1.0); EOSINOPHILS # (AUTO) 0.4 (0.0-0.4); EOSINOPHILS % 2.4 % (0.0-6.0); HEMATOCRIT 37.4 % (38.2-49.6); HEMOGLOBIN 12.3 g/dL (14.0-18.0); LYMPHOCYTES # (AUTO) 1.9 (1.0-3.2); LYMPHOCYTES % 11.4 % (18.0-39.1); MEAN CORPUSCULAR HGB CONC 32.9 g/dL (31-35); MEAN CORPUSCULAR VOLUME 94.2 fL (81-99); MONOCYTES # (AUTO) 0.9 (0.2-0.8); MONOCYTES % 5.3 % (4.4-11.3); NEUTROPHILS # (AUTO) 11.7 (2.1-6.9); NEUTROPHILS % 71.7 % (38.7-80.0); PLATELET COUNT 278 x10e3/uL (140-360); RED BLOOD COUNT 3.97 x10e6/uL (4.3-5.7); RED CELL DISTRIBUTION WIDTH 13.9 % (11.7-14.4)
[2021-08-06 06:55] LABS: ALBUMIN 2.3 g/dL (3.5-5.0); ALBUMIN/GLOBULIN RATIO 0.6 (0.8-2.0); ANION GAP 13.5 mmol/L (8-16); CALCIUM 8.1 mg/dL (8.4-10.2); CREATININE, SERUM 0.57 mg/dL (0.72-1.25); POTASSIUM 3.5 mmol/L (3.5-5.1)
[2021-08-06] MEDS: ENOXAPARIN SOD INJ 60 MG/0.6 ML SYR SC SCH ×2 (08:04→20:19)
[2021-08-06] MEDS: ZINC SULFATE 50 MG CAP PO SCH (08:04)
[2021-08-06] MEDS: BARICITINIB 2 MG TABLET PO SCH (08:04)
[2021-08-06] MEDS: ASCORBIC ACID 500 MG TAB PO SCH ×3 (08:04→16:47)
[2021-08-06] MEDS ORDERED: POTASSIUM CHLORIDE 20MEQ/100ML 200 ML IV ONE (08:30)
[2021-08-06] MEDS ORDERED: PROPOFOL IV EMULSION 10MG/ML 100 ML ONE (08:39)
[2021-08-06 09:15] LABS: ABG HCO3 30 mmol/L (22-26); ABG PCO2 47 mmHg (35-45); ABG PH 7.41 (7.35-7.45); ABG PO2 93 mmHg (80-105); ABG TCO2 31
[2021-08-06] MEDS: PROPOFOL IV EMULSION 50 ML IV SCH (20:22)
[2021-08-07] VITALS (25 sets, daily range): BP systolic 101–170; BP diastolic 36–86
[2021-08-07] MEDS: FENTANYL 2000MCG/NS 250 250 ML IV SCH ×3 (02:46→18:42)
[2021-08-07] MEDS: MIDAZOLAM HCL 5MG/ML 10ML VIAL 100 ML IV PRN ×3 (04:11→17:00)
[2021-08-07 05:58] LABS: BASOPHILS # (AUTO) 0.1 (0.0-0.1); BASOPHILS % 0.4 % (0.0-1.0); EOSINOPHILS # (AUTO) 0.6 (0.0-0.4); EOSINOPHILS % 4.4 % (0.0-6.0); HEMATOCRIT 34.2 % (38.2-49.6); HEMOGLOBIN 11.3 g/dL (14.0-18.0); LYMPHOCYTES # (AUTO) 1.3 (1.0-3.2); LYMPHOCYTES % 10.2 % (18.0-39.1); MEAN CORPUSCULAR HEMOGLOBIN 31.2 pg (28-32); MEAN CORPUSCULAR VOLUME 94.5 fL (81-99); MONOCYTES # (AUTO) 0.6 (0.2-0.8); MONOCYTES % 4.8 % (4.4-11.3); NEUTROPHILS # (AUTO) 8.8 (2.1-6.9); NEUTROPHILS % 70.2 % (38.7-80.0); PLATELET COUNT 244 x10e3/uL (140-360); RED BLOOD COUNT 3.62 x10e6/uL (4.3-5.7); RED CELL DISTRIBUTION WIDTH 14.1 % (11.7-14.4)
[2021-08-07 06:32] LABS: ALBUMIN/GLOBULIN RATIO 0.5 (0.8-2.0); ANION GAP 12.8 mmol/L (8-16); CALCIUM 7.9 mg/dL (8.4-10.2); CREATININE, SERUM 0.53 mg/dL (0.72-1.25); POTASSIUM 3.8 mmol/L (3.5-5.1)
[2021-08-07] MEDS: PROPOFOL IV EMULSION 50 ML IV SCH ×2 (06:40→19:06)
[2021-08-07] MEDS: ASCORBIC ACID 500 MG TAB PO SCH ×2 (08:55→16:34)
[2021-08-07] MEDS: ENOXAPARIN SOD INJ 60 MG/0.6 ML SYR SC SCH ×2 (08:55→21:54)
[2021-08-07] MEDS: ZINC SULFATE 50 MG CAP PO SCH (08:55)
[2021-08-07 09:36] LABS: ABG PCO2 49 mmHg (35-45); ABG PH 7.44 (7.35-7.45); ABG PO2 85 mmHg (80-105)
[2021-08-07 09:37] LABS: ABG HCO3 33 mmol/L (22-26); ABG TCO2 35
[2021-08-07] MEDS ORDERED: FUROSEMIDE INJ 10 MG/ML 4 ML VIAL IV ONE ×2 (11:45→15:30)
[2021-08-07] MEDS ORDERED: LACTULOSE SYRUP 20 GM/30 ML UDC PO ONE ×2 (11:45→15:30)
[2021-08-07] MEDS: DOCUSATE SODIUM LIQD 100 MG/10 ML UDC NG SCH (16:34)
[2021-08-08] VITALS (22 sets, daily range): BP systolic 103–138; BP diastolic 52–98
[2021-08-08 06:19] LABS: BASOPHILS # (AUTO) 0.1 (0.0-0.1); BASOPHILS % 0.5 % (0.0-1.0); EOSINOPHILS # (AUTO) 0.6 (0.0-0.4); EOSINOPHILS % 3.7 % (0.0-6.0); HEMATOCRIT 35.9 % (38.2-49.6); HEMOGLOBIN 11.7 g/dL (14.0-18.0); LYMPHOCYTES # (AUTO) 1.1 (1.0-3.2); LYMPHOCYTES % 6.8 % (18.0-39.1); MEAN CORPUSCULAR HEMOGLOBIN 30.8 pg (28-32); MEAN CORPUSCULAR HGB CONC 32.6 g/dL (31-35); MEAN CORPUSCULAR VOLUME 94.5 fL (81-99); MONOCYTES # (AUTO) 0.6 (0.2-0.8); NEUTROPHILS % 78.2 % (38.7-80.0); PLATELET COUNT 278 x10e3/uL (140-360)
[2021-08-08 06:49] LABS: ALBUMIN 2.1 g/dL (3.5-5.0); ALBUMIN/GLOBULIN RATIO 0.5 (0.8-2.0); ANION GAP 12.6 mmol/L (8-16); CALCIUM 7.9 mg/dL (8.4-10.2); CREATININE, SERUM 0.49 mg/dL (0.72-1.25); POTASSIUM 3.6 mmol/L (3.5-5.1)
[2021-08-08] MEDS: ENOXAPARIN SOD INJ 60 MG/0.6 ML SYR SC SCH (08:29)
[2021-08-08] MEDS: ZINC SULFATE 50 MG CAP PO SCH (08:29)
[2021-08-08] MEDS: ASCORBIC ACID 500 MG TAB PO SCH ×2 (08:29→19:15)
[2021-08-08] MEDS: DOCUSATE SODIUM LIQD 100 MG/10 ML UDC NG SCH ×2 (08:29→19:15)
[2021-08-08 08:44] LABS: ABG HCO3 32 mmol/L (22-26); ABG PCO2 52 mmHg (35-45); ABG PO2 84 mmHg (80-105); ABG TCO2 34
[2021-08-08] MEDS: MIDAZOLAM HCL 5MG/ML 10ML VIAL 100 ML IV PRN ×3 (09:00→22:20)
[2021-08-08] MEDS ORDERED: ALBUMIN 25% 25GM 100ML 0.25 GM/ML BTL IV SCH (09:30)
[2021-08-08] MEDS: FUROSEMIDE INJ 10 MG/ML 4 ML VIAL IV SCH ×2 (11:10→21:21)
[2021-08-08] MEDS: ALBUMIN 25% 25GM 100ML 100 ML IV SCH ×2 (11:10→19:24)
[2021-08-08 11:57] LABS: ABG HCO3 33 mmol/L (22-26); ABG PCO2 54 mmHg (35-45); ABG PO2 61 mmHg (80-105); ABG TCO2 35
[2021-08-08] MEDS: PROPOFOL IV EMULSION 50 ML IV SCH ×3 (13:56→19:48)
[2021-08-08] MEDS: FENTANYL 2000MCG/NS 250 250 ML IV SCH ×2 (13:57→22:11)
[2021-08-08] MEDS: ENOXAPARIN SODIUM INJ 100 MG/ML SYR SC SCH (21:21)
[2021-08-09] VITALS (27 sets, daily range): BP systolic 91–133; BP diastolic 42–60
[2021-08-09] MEDS: ALBUMIN 25% 25GM 100ML 100 ML IV SCH (01:57)
[2021-08-09] MEDS: MIDAZOLAM HCL 5MG/ML 10ML VIAL 100 ML IV PRN ×5 (03:34→19:14)
[2021-08-09 06:09] LABS: BASOPHILS # (AUTO) 0.1 (0.0-0.1); BASOPHILS % 0.5 % (0.0-1.0); EOSINOPHILS # (AUTO) 0.9 (0.0-0.4); EOSINOPHILS % 6.5 % (0.0-6.0); HEMATOCRIT 32.7 % (38.2-49.6); HEMOGLOBIN 10.7 g/dL (14.0-18.0); LYMPHOCYTES # (AUTO) 1.3 (1.0-3.2); LYMPHOCYTES % 9.9 % (18.0-39.1); MEAN CORPUSCULAR HEMOGLOBIN 31.1 pg (28-32); MEAN CORPUSCULAR HGB CONC 32.7 g/dL (31-35); MEAN CORPUSCULAR VOLUME 95.1 fL (81-99); MONOCYTES # (AUTO) 0.8 (0.2-0.8); MONOCYTES % 5.7 % (4.4-11.3); NEUTROPHILS # (AUTO) 9.6 (2.1-6.9); NEUTROPHILS % 72.1 % (38.7-80.0); PLATELET COUNT 275 x10e3/uL (140-360); RED BLOOD COUNT 3.44 x10e6/uL (4.3-5.7); RED CELL DISTRIBUTION WIDTH 13.9 % (11.7-14.4)
[2021-08-09] MEDS: PROPOFOL IV EMULSION 50 ML IV SCH ×6 (06:09→21:20)
[2021-08-09] MEDS: FENTANYL 2000MCG/NS 250 250 ML IV SCH ×3 (06:14→19:03)
[2021-08-09 06:47] LABS: ALBUMIN 2.8 g/dL (3.5-5.0); ALBUMIN/GLOBULIN RATIO 0.8 (0.8-2.0); ANION GAP 10.4 mmol/L (8-16); CALCIUM 7.9 mg/dL (8.4-10.2); CREATININE, SERUM 0.52 mg/dL (0.72-1.25); POTASSIUM 3.4 mmol/L (3.5-5.1)
[2021-08-09 07:53] LABS: ABG HCO3 35 mmol/L (22-26); ABG PCO2 52 mmHg (35-45); ABG PH 7.44 (7.35-7.45); ABG PO2 59 mmHg (80-105); ABG TCO2 36
[2021-08-09] MEDS: DOCUSATE SODIUM LIQD 100 MG/10 ML UDC NG SCH ×2 (09:00→17:54)
[2021-08-09] MEDS: ZINC SULFATE 50 MG CAP PO SCH (09:00)
[2021-08-09] MEDS: ENOXAPARIN SODIUM INJ 100 MG/ML SYR SC SCH ×2 (09:00→21:21)
[2021-08-09] MEDS: ASCORBIC ACID 500 MG TAB PO SCH ×2 (09:00→17:54)
[2021-08-09] MEDS ORDERED: POTASSIUM CHLORIDE 20MEQ/100ML 200 ML IV ONE (11:30)
[2021-08-09] MEDS: ACETAMINOPHEN 325 MG TAB PO PRN (21:21)
[2021-08-10] VITALS (27 sets, daily range): BP systolic 93–145; BP diastolic 43–61
[2021-08-10] MEDS: MIDAZOLAM HCL 5MG/ML 10ML VIAL 100 ML IV PRN ×4 (00:27→20:59)
[2021-08-10] MEDS: PROPOFOL IV EMULSION 50 ML IV SCH ×7 (00:49→10:40)
[2021-08-10] MEDS ORDERED: PROPOFOL IV EMULSION 10MG/ML 100 ML ONE ×3 (01:00→05:50)
[2021-08-10] MEDS: FENTANYL 2000MCG/NS 250 250 ML IV SCH ×4 (02:15→23:00)
[2021-08-10] MEDS ORDERED: VECURONIUM BROMIDE FOR INJ 20 MG VIAL IV STA (05:03)
[2021-08-10] MEDS ORDERED: ROCURONIUM 1250MG/NS 250 250 ML ONE (05:12)
[2021-08-10] MEDS ORDERED: ROCURONIUM 1250MG/NS 250 250 ML IV SCH (05:15)
[2021-08-10] MEDS ORDERED: VECURONIUM BROMIDE FOR INJ 20 MG VIAL ONE (05:17)
[2021-08-10 06:20] LABS: BASOPHILS # (AUTO) 0.1 (0.0-0.1); BASOPHILS % 0.4 % (0.0-1.0); EOSINOPHILS # (AUTO) 0.8 (0.0-0.4); EOSINOPHILS % 4.3 % (0.0-6.0); HEMATOCRIT 33.7 % (38.2-49.6); HEMOGLOBIN 10.8 g/dL (14.0-18.0); LYMPHOCYTES # (AUTO) 1.9 (1.0-3.2); LYMPHOCYTES % 10.6 % (18.0-39.1); MEAN CORPUSCULAR VOLUME 96.8 fL (81-99); MONOCYTES # (AUTO) 1.2 (0.2-0.8); MONOCYTES % 6.8 % (4.4-11.3); PLATELET COUNT 289 x10e3/uL (140-360); RED BLOOD COUNT 3.48 x10e6/uL (4.3-5.7)
[2021-08-10 06:46] LABS: ALBUMIN 2.4 g/dL (3.5-5.0); ALBUMIN/GLOBULIN RATIO 0.7 (0.8-2.0); ANION GAP 13.7 mmol/L (8-16); CALCIUM 7.6 mg/dL (8.4-10.2); CREATININE, SERUM 0.44 mg/dL (0.72-1.25); POTASSIUM 3.7 mmol/L (3.5-5.1)
[2021-08-10] MEDS: ROCURONIUM 1250MG/NS 250 250 ML IV SCH (07:25)
[2021-08-10 08:26] LABS: ABG HCO3 34 mmol/L (22-26); ABG PCO2 72 mmHg (35-45); ABG PH 7.28 (7.35-7.45); ABG PO2 63 mmHg (80-105); ABG TCO2 36
[2021-08-10] MEDS ORDERED: ALBUMIN 25% 25GM 100ML 0.25 GM/ML BTL IV SCH (09:15)
[2021-08-10] MEDS ORDERED: FUROSEMIDE INJ 10 MG/ML 4 ML VIAL IV ONE (09:30)
[2021-08-10] MEDS: ZINC SULFATE 50 MG CAP PO SCH (09:31)
[2021-08-10] MEDS: DOCUSATE SODIUM LIQD 100 MG/10 ML UDC NG SCH ×2 (09:31→17:43)
[2021-08-10] MEDS: ASCORBIC ACID 500 MG TAB PO SCH ×2 (09:31→17:43)
[2021-08-10] MEDS: ENOXAPARIN SODIUM INJ 100 MG/ML SYR SC SCH ×2 (09:31→21:02)
[2021-08-10] MEDS: Vancomycin IV 1 GM in SODIUM CHLORIDE 0.9% 250ML 250 ML IV SCH ×2 (10:15→21:45)
[2021-08-10] MEDS: ALBUMIN 25% 12.5GM 50ML 100 ML IV SCH ×2 (10:15→17:43)
[2021-08-10] MEDS: CEFEPIME 1 GM in SODIUM CHLORIDE 0.9% 50ML 50 ML IV SCH ×2 (13:45→21:10)
[2021-08-10] MEDS: PROPOFOL IV EMULSION 10MG/ML 100 ML IV SCH ×2 (15:59→21:01)
[2021-08-11] VITALS (26 sets, daily range): BP systolic 98–165; BP diastolic 49–84
[2021-08-11] MEDS: ALBUMIN 25% 12.5GM 50ML 100 ML IV SCH (01:46)
[2021-08-11] MEDS: ROCURONIUM 1250MG/NS 250 250 ML IV SCH (02:00)
[2021-08-11] MEDS: MIDAZOLAM HCL 5MG/ML 10ML VIAL 100 ML IV PRN ×4 (02:04→19:07)
[2021-08-11] MEDS: PROPOFOL IV EMULSION 10MG/ML 100 ML IV SCH ×7 (03:57→19:06)
[2021-08-11] MEDS: CEFEPIME 1 GM in SODIUM CHLORIDE 0.9% 50ML 50 ML IV SCH ×3 (05:45→21:31)
[2021-08-11] MEDS: FENTANYL 2000MCG/NS 250 250 ML IV SCH ×2 (05:47→12:49)
[2021-08-11 05:59] LABS: HEMATOCRIT 27.5 % (38.2-49.6); HEMOGLOBIN 9.9 g/dL (14.0-18.0); LYMPHOCYTES % 8.5 % (18.0-39.1); MEAN CORPUSCULAR HEMOGLOBIN 36.4 pg (28-32); MEAN CORPUSCULAR VOLUME 101.1 fL (81-99); NEUTROPHILS % 72.5 % (38.7-80.0); PLATELET COUNT 221 x10e3/uL (140-360); RED BLOOD COUNT 2.72 x10e6/uL (4.3-5.7); RED CELL DISTRIBUTION WIDTH 14.6 % (11.7-14.4)
[2021-08-11 06:00] LABS: BASOPHILS # (AUTO) 0.1 (0.0-0.1); BASOPHILS % 0.4 % (0.0-1.0); EOSINOPHILS # (AUTO) 0.7 (0.0-0.4); EOSINOPHILS % 5.5 % (0.0-6.0); NEUTROPHILS # (AUTO) 8.8 (2.1-6.9)
[2021-08-11 06:51] LABS: ALBUMIN 2.7 g/dL (3.5-5.0); ALBUMIN/GLOBULIN RATIO 0.8 (0.8-2.0); CALCIUM 7.6 mg/dL (8.4-10.2); CREATININE, SERUM 0.46 mg/dL (0.72-1.25)
[2021-08-11 08:36] LABS: BAND NEUTROPHILS % (MANUAL) 7 %; EOSINOPHILS % (MANUAL) 5 % (0-7); LYMPHOCYTES % (MANUAL) 7 % (19-48); MONOCYTES % (MANUAL) 3 % (3.4-9.0); MYELOCYTES % (MANUAL) 1 % (0-0); NEUTROPHILS % (MANUAL) 77 % (40-74); PLATELET ESTIMATE ADEQUATE
[2021-08-11 08:37] LABS: PLATELET MORPHOLOGY COMMENT FEW LARGE; RBC MORPHOLOGY COMMENT NORMAL
[2021-08-11 08:38] LABS: POLYCHROMASIA FEW
[2021-08-11 08:43] LABS: ABG PH 7.24 (7.35-7.45)
[2021-08-11 08:44] LABS: ABG HCO3 34 mmol/L (22-26); ABG PCO2 80 mmHg (35-45); ABG PO2 70 mmHg (80-105); ABG TCO2 37
[2021-08-11] MEDS: ZINC SULFATE 50 MG CAP PO SCH (09:00)
[2021-08-11] MEDS: ASCORBIC ACID 500 MG TAB PO SCH ×2 (09:00→18:16)
[2021-08-11] MEDS: DOCUSATE SODIUM LIQD 100 MG/10 ML UDC NG SCH ×2 (09:00→18:16)
[2021-08-11] MEDS: ENOXAPARIN SODIUM INJ 100 MG/ML SYR SC SCH ×2 (09:00→21:31)
[2021-08-11] MEDS: Vancomycin IV 1 GM in SODIUM CHLORIDE 0.9% 250ML 250 ML IV SCH ×2 (10:10→23:40)
[2021-08-11] MEDS ORDERED: ALBUMIN 25% 25GM 100ML 0.25 GM/ML BTL IV SCH (12:30)
[2021-08-11 13:58] LABS: ABG HCO3 35 mmol/L (22-26); ABG PCO2 91 mmHg (35-45); ABG PO2 62 mmHg (80-105); ABG TCO2 38
[2021-08-11] MEDS: ALBUMIN 25% 25GM 100ML 100 ML IV SCH ×2 (15:04→21:31)
[2021-08-11] MEDS: FUROSEMIDE INJ 10 MG/ML 4 ML VIAL IV SCH ×2 (15:05→21:31)
[2021-08-11 17:46] LABS: ABG PH 7.23 (7.35-7.45)
[2021-08-11 17:47] LABS: ABG HCO3 39 mmol/L (22-26); ABG PCO2 93 mmHg (35-45); ABG PO2 74 mmHg (80-105); ABG TCO2 41
[2021-08-12] VITALS (22 sets, daily range): BP systolic 100–145; BP diastolic 53–77
[2021-08-12] MEDS: ALBUMIN 25% 25GM 100ML 100 ML IV SCH (06:11)
[2021-08-12] MEDS: CEFEPIME 1 GM in SODIUM CHLORIDE 0.9% 50ML 50 ML IV SCH ×3 (06:11→22:05)
[2021-08-12] MEDS: ROCURONIUM 1250MG/NS 250 250 ML IV SCH ×2 (06:11→14:16)
[2021-08-12 07:01] LABS: BASOPHILS # (AUTO) 0.1 (0.0-0.1); BASOPHILS % 0.5 % (0.0-1.0); EOSINOPHILS # (AUTO) 0.6 (0.0-0.4); EOSINOPHILS % 5.1 % (0.0-6.0); HEMATOCRIT 31.1 % (38.2-49.6); HEMOGLOBIN 9.6 g/dL (14.0-18.0); LYMPHOCYTES # (AUTO) 0.9 (1.0-3.2); LYMPHOCYTES % 7.8 % (18.0-39.1); MEAN CORPUSCULAR HEMOGLOBIN 30.5 pg (28-32); MEAN CORPUSCULAR HGB CONC 30.9 g/dL (31-35); MEAN CORPUSCULAR VOLUME 98.7 fL (81-99); MONOCYTES # (AUTO) 0.8 (0.2-0.8); NEUTROPHILS % 75.9 % (38.7-80.0); PLATELET COUNT 296 x10e3/uL (140-360); RED BLOOD COUNT 3.15 x10e6/uL (4.3-5.7); RED CELL DISTRIBUTION WIDTH 13.8 % (11.7-14.4)
[2021-08-12 07:31] LABS: ALBUMIN/GLOBULIN RATIO 0.9 (0.8-2.0); ANION GAP 11.5 mmol/L (8-16); CALCIUM 8.6 mg/dL (8.4-10.2); CREATININE, SERUM 0.48 mg/dL (0.72-1.25); POTASSIUM 3.5 mmol/L (3.5-5.1)
[2021-08-12] MEDS: MIDAZOLAM HCL 5MG/ML 10ML VIAL 100 ML IV PRN ×2 (09:16→14:17)
[2021-08-12] MEDS: ZINC SULFATE 50 MG CAP PO SCH (09:17)
[2021-08-12] MEDS: ENOXAPARIN SODIUM INJ 100 MG/ML SYR SC SCH ×2 (09:17→22:05)
[2021-08-12] MEDS: DOCUSATE SODIUM LIQD 100 MG/10 ML UDC NG SCH ×2 (09:17→16:53)
[2021-08-12] MEDS: ASCORBIC ACID 500 MG TAB PO SCH ×2 (09:17→16:53)
[2021-08-12] MEDS: PROPOFOL IV EMULSION 10MG/ML 100 ML IV SCH ×3 (09:17→13:59)
[2021-08-12] MEDS: FENTANYL 2000MCG/NS 250 250 ML IV SCH ×2 (09:20→16:53)
[2021-08-12 09:59] LABS: ABG PH 7.38 (7.35-7.45)
[2021-08-12 10:00] LABS: ABG HCO3 36 mmol/L (22-26); ABG PCO2 61 mmHg (35-45); ABG PO2 76 mmHg (80-105); ABG TCO2 38
[2021-08-12] MEDS: Vancomycin IV 1 GM in SODIUM CHLORIDE 0.9% 250ML 250 ML IV SCH (10:30)
[2021-08-12] MEDS: FUROSEMIDE INJ 10 MG/ML 4 ML VIAL IV SCH ×2 (13:44→22:05)
[2021-08-13] VITALS (22 sets, daily range): BP systolic 114–155; BP diastolic 66–84
[2021-08-13] MEDS: Vancomycin IV 1 GM in SODIUM CHLORIDE 0.9% 250ML 250 ML IV SCH ×2 (01:19→08:13)
[2021-08-13] MEDS: CEFEPIME 1 GM in SODIUM CHLORIDE 0.9% 50ML 50 ML IV SCH ×3 (05:47→21:35)
[2021-08-13 06:55] LABS: BASOPHILS # (AUTO) 0.1 (0.0-0.1); BASOPHILS % 0.7 % (0.0-1.0); EOSINOPHILS % 6.5 % (0.0-6.0); HEMATOCRIT 35.6 % (38.2-49.6); HEMOGLOBIN 10.8 g/dL (14.0-18.0); LYMPHOCYTES # (AUTO) 1.8 (1.0-3.2); MEAN CORPUSCULAR HEMOGLOBIN 30.4 pg (28-32); MEAN CORPUSCULAR HGB CONC 30.3 g/dL (31-35); MEAN CORPUSCULAR VOLUME 100.3 fL (81-99); MONOCYTES # (AUTO) 1.1 (0.2-0.8); MONOCYTES % 7.2 % (4.4-11.3); NEUTROPHILS # (AUTO) 10.2 (2.1-6.9); NEUTROPHILS % 69.5 % (38.7-80.0); PLATELET COUNT 354 x10e3/uL (140-360); RED BLOOD COUNT 3.55 x10e6/uL (4.3-5.7)
[2021-08-13] MEDS ORDERED: Vancomycin IV 1 GM VIAL ONE (07:30)
[2021-08-13 07:41] LABS: ALBUMIN 3.1 g/dL (3.5-5.0); ALBUMIN/GLOBULIN RATIO 0.8 (0.8-2.0); ANION GAP 11.6 mmol/L (8-16); CALCIUM 8.7 mg/dL (8.4-10.2); CREATININE, SERUM 0.48 mg/dL (0.72-1.25); POTASSIUM 3.6 mmol/L (3.5-5.1)
[2021-08-13] MEDS: PROPOFOL IV EMULSION 10MG/ML 100 ML IV SCH ×4 (08:12→15:14)
[2021-08-13] MEDS: ASCORBIC ACID 500 MG TAB PO SCH ×2 (08:12→16:53)
[2021-08-13] MEDS: DOCUSATE SODIUM LIQD 100 MG/10 ML UDC NG SCH ×2 (08:12→16:53)
[2021-08-13] MEDS: ZINC SULFATE 50 MG CAP PO SCH (08:12)
[2021-08-13] MEDS: ENOXAPARIN SODIUM INJ 100 MG/ML SYR SC SCH ×2 (08:13→21:34)
[2021-08-13] MEDS: FUROSEMIDE INJ 10 MG/ML 4 ML VIAL IV SCH ×2 (10:48→21:34)
[2021-08-13] MEDS: MIDAZOLAM HCL 5MG/ML 10ML VIAL 100 ML IV PRN ×2 (11:23→16:49)
[2021-08-13 12:23] LABS: ABG HCO3 40 mmol/L (22-26); ABG PCO2 100 mmHg (35-45); ABG PO2 59 mmHg (80-105); ABG TCO2 43
[2021-08-13] MEDS: FENTANYL 2000MCG/NS 250 250 ML IV SCH (12:41)
[2021-08-14] VITALS (24 sets, daily range): BP systolic 111–122; BP diastolic 58–85
[2021-08-14] MEDS: Vancomycin IV 1 GM in SODIUM CHLORIDE 0.9% 250ML 250 ML IV SCH ×2 (00:32→09:36)
[2021-08-14 06:04] LABS: BASOPHILS # (AUTO) 0.1 (0.0-0.1); BASOPHILS % 0.7 % (0.0-1.0); EOSINOPHILS # (AUTO) 0.3 (0.0-0.4); EOSINOPHILS % 1.5 % (0.0-6.0); HEMATOCRIT 34.5 % (38.2-49.6); HEMOGLOBIN 10.5 g/dL (14.0-18.0); LYMPHOCYTES # (AUTO) 1.2 (1.0-3.2); LYMPHOCYTES % 6.8 % (18.0-39.1); MEAN CORPUSCULAR HEMOGLOBIN 30.8 pg (28-32); MEAN CORPUSCULAR HGB CONC 30.4 g/dL (31-35); MEAN CORPUSCULAR VOLUME 101.2 fL (81-99); MONOCYTES # (AUTO) 1.1 (0.2-0.8); MONOCYTES % 6.5 % (4.4-11.3); NEUTROPHILS # (AUTO) 14.2 (2.1-6.9); NEUTROPHILS % 80.6 % (38.7-80.0); PLATELET COUNT 317 x10e3/uL (140-360); RED BLOOD COUNT 3.41 x10e6/uL (4.3-5.7); RED CELL DISTRIBUTION WIDTH 13.9 % (11.7-14.4)
[2021-08-14] MEDS: CEFEPIME 1 GM in SODIUM CHLORIDE 0.9% 50ML 50 ML IV SCH (06:13)
[2021-08-14] MEDS: ROCURONIUM 1250MG/NS 250 250 ML IV SCH ×2 (06:13→12:47)
[2021-08-14 06:26] LABS: ALBUMIN 2.9 g/dL (3.5-5.0); ALBUMIN/GLOBULIN RATIO 0.9 (0.8-2.0); ANION GAP 15.9 mmol/L (8-16); CALCIUM 8.6 mg/dL (8.4-10.2); CREATININE, SERUM 0.58 mg/dL (0.72-1.25); POTASSIUM 3.9 mmol/L (3.5-5.1)
[2021-08-14] MEDS: MIDAZOLAM HCL 5MG/ML 10ML VIAL 100 ML IV PRN ×2 (07:44→14:23)
[2021-08-14] MEDS: FENTANYL 2000MCG/NS 250 250 ML IV SCH ×3 (07:44→23:34)
[2021-08-14 08:55] LABS: ABG PH 7.25 (7.35-7.45)
[2021-08-14 08:56] LABS: ABG PCO2 99 mmHg (35-45)
[2021-08-14 08:57] LABS: ABG HCO3 44 mmol/L (22-26); ABG PO2 66 mmHg (80-105); ABG TCO2 46
[2021-08-14] MEDS: ASCORBIC ACID 500 MG TAB PO SCH ×2 (09:34→16:51)
[2021-08-14] MEDS: DOCUSATE SODIUM LIQD 100 MG/10 ML UDC NG SCH ×2 (09:34→16:51)
[2021-08-14] MEDS: ZINC SULFATE 50 MG CAP PO SCH (09:34)
[2021-08-14] MEDS: PROPOFOL IV EMULSION 10MG/ML 100 ML IV SCH ×2 (11:26→14:22)
[2021-08-14] MEDS: FUROSEMIDE INJ 100 MG in SODIUM CHLORIDE 0.9% 100 ML 90 ML IV SCH (12:40)
[2021-08-14] MEDS: BISACODYL 10 MG SUPP PR PRN (17:04)
[2021-08-14] MEDS: BALSAM PERU/CASTOR OIL 60 GM OINT...G. TP SCH (20:18)
[2021-08-14] MEDS: ENOXAPARIN SODIUM INJ 100 MG/ML SYR SC SCH (20:18)
[2021-08-15] VITALS (25 sets, daily range): BP systolic 115–141; BP diastolic 45–67
[2021-08-15] MEDS: PROPOFOL IV EMULSION 10MG/ML 100 ML IV SCH ×5 (00:20→20:27)
[2021-08-15] MEDS: MIDAZOLAM HCL 5MG/ML 10ML VIAL 100 ML IV PRN ×4 (05:12→23:15)
[2021-08-15] MEDS: FUROSEMIDE INJ 100 MG in SODIUM CHLORIDE 0.9% 100 ML 90 ML IV SCH ×2 (06:02→07:00)
[2021-08-15] MEDS: FENTANYL 2000MCG/NS 250 250 ML IV SCH ×3 (06:28→20:26)
[2021-08-15 06:55] LABS: BASOPHILS # (AUTO) 0.1 (0.0-0.1); BASOPHILS % 0.6 % (0.0-1.0); EOSINOPHILS # (AUTO) 0.8 (0.0-0.4); EOSINOPHILS % 5.9 % (0.0-6.0); HEMATOCRIT 32.6 % (38.2-49.6); HEMOGLOBIN 10.3 g/dL (14.0-18.0); LYMPHOCYTES % 7.3 % (18.0-39.1); MEAN CORPUSCULAR HGB CONC 31.6 g/dL (31-35); MEAN CORPUSCULAR VOLUME 101.2 fL (81-99); MONOCYTES # (AUTO) 0.8 (0.2-0.8); MONOCYTES % 5.9 % (4.4-11.3); NEUTROPHILS # (AUTO) 10.6 (2.1-6.9); NEUTROPHILS % 74.9 % (38.7-80.0); PLATELET COUNT 295 x10e3/uL (140-360); RED BLOOD COUNT 3.22 x10e6/uL (4.3-5.7); RED CELL DISTRIBUTION WIDTH 13.9 % (11.7-14.4)
[2021-08-15 08:43] LABS: ABG PCO2 89 mmHg (35-45); ABG PH 7.34 (7.35-7.45)
[2021-08-15 08:44] LABS: ABG HCO3 47 mmol/L (22-26); ABG PO2 74 mmHg (80-105); ABG TCO2 50
[2021-08-15] MEDS: ZINC SULFATE 50 MG CAP PO SCH (09:00)
[2021-08-15] MEDS: ENOXAPARIN SODIUM INJ 100 MG/ML SYR SC SCH ×2 (09:00→20:41)
[2021-08-15] MEDS: ASCORBIC ACID 500 MG TAB PO SCH ×2 (09:00→17:05)
[2021-08-15] MEDS: DOCUSATE SODIUM LIQD 100 MG/10 ML UDC NG SCH ×2 (09:00→17:05)
[2021-08-15] MEDS: BALSAM PERU/CASTOR OIL 60 GM OINT...G. TP SCH ×2 (09:00→20:42)
[2021-08-15 09:01] LABS: ANION GAP 16.2 mmol/L (8-16); CALCIUM 7.4 mg/dL (8.4-10.2); CREATININE, SERUM 0.61 mg/dL (0.72-1.25); POTASSIUM 4.2 mmol/L (3.5-5.1)
[2021-08-15 09:10] LABS: ALBUMIN 2.6 g/dL (3.5-5.0); ALBUMIN/GLOBULIN RATIO 0.6 (0.8-2.0)
[2021-08-15] MEDS ORDERED: ACETAZOLAMIDE SODIUM 500 MG/VIAL IV NR (11:00)
[2021-08-16] VITALS (22 sets, daily range): BP systolic 114–135; BP diastolic 55–67
[2021-08-16] MEDS: PROPOFOL IV EMULSION 10MG/ML 100 ML IV SCH ×8 (00:25→23:11)
[2021-08-16] MEDS: FENTANYL 2000MCG/NS 250 250 ML IV SCH ×4 (03:52→23:10)
[2021-08-16] MEDS: MIDAZOLAM HCL 5MG/ML 10ML VIAL 100 ML IV PRN ×4 (04:41→21:24)
[2021-08-16] MEDS: ROCURONIUM 1250MG/NS 250 250 ML IV SCH ×2 (05:45→10:03)
[2021-08-16 06:15] LABS: BASOPHILS # (AUTO) 0.1 (0.0-0.1); BASOPHILS % 0.6 % (0.0-1.0); EOSINOPHILS # (AUTO) 1.3 (0.0-0.4); EOSINOPHILS % 7.4 % (0.0-6.0); HEMOGLOBIN 10.4 g/dL (14.0-18.0); LYMPHOCYTES # (AUTO) 1.4 (1.0-3.2); LYMPHOCYTES % 8.2 % (18.0-39.1); MEAN CORPUSCULAR HEMOGLOBIN 30.5 pg (28-32); MEAN CORPUSCULAR HGB CONC 30.6 g/dL (31-35); MEAN CORPUSCULAR VOLUME 99.7 fL (81-99); NEUTROPHILS # (AUTO) 12.2 (2.1-6.9); NEUTROPHILS % 72.1 % (38.7-80.0); PLATELET COUNT 304 x10e3/uL (140-360); RED BLOOD COUNT 3.41 x10e6/uL (4.3-5.7); RED CELL DISTRIBUTION WIDTH 14.1 % (11.7-14.4)
[2021-08-16 06:37] LABS: ALBUMIN 2.5 g/dL (3.5-5.0); ALBUMIN/GLOBULIN RATIO 0.7 (0.8-2.0); ANION GAP 13.3 mmol/L (8-16); CALCIUM 7.7 mg/dL (8.4-10.2); CREATININE, SERUM 0.6 mg/dL (0.72-1.25); POTASSIUM 3.3 mmol/L (3.5-5.1)
[2021-08-16 08:19] LABS: ABG PCO2 41 mmHg (35-45); ABG PH 7.31 (7.35-7.45)
[2021-08-16 08:20] LABS: ABG HCO3 23 mmol/L (22-26); ABG PO2 80 mmHg (80-105); ABG TCO2 24
[2021-08-16 08:36] LABS: ABG HCO3 51 mmol/L (22-26); ABG PCO2 82 mmHg (35-45); ABG PO2 72 mmHg (80-105); ABG TCO2 50
[2021-08-16] MEDS: BALSAM PERU/CASTOR OIL 60 GM OINT...G. TP SCH ×2 (13:10→21:59)
[2021-08-16] MEDS: ENOXAPARIN SODIUM INJ 100 MG/ML SYR SC SCH ×2 (13:10→21:59)
[2021-08-16] MEDS: DOCUSATE SODIUM LIQD 100 MG/10 ML UDC NG SCH ×2 (13:10→16:54)
[2021-08-16] MEDS: ASCORBIC ACID 500 MG TAB PO SCH ×2 (13:10→16:54)
[2021-08-16] MEDS: ZINC SULFATE 50 MG CAP PO SCH (13:10)
[2021-08-16] MEDS ORDERED: ALBUMIN 25% 25GM 100ML 0.25 GM/ML BTL IV SCH (13:15)
[2021-08-16] MEDS ORDERED: POTASSIUM CHLORIDE 20MEQ/100ML 200 ML IV ONE (13:30)
[2021-08-16] MEDS: FUROSEMIDE INJ 100 MG in SODIUM CHLORIDE 0.9% 100 ML 90 ML IV SCH (16:54)
[2021-08-16] MEDS: ALBUMIN 25% 25GM 100ML 100 ML IV SCH ×2 (16:54→22:28)
[2021-08-17] VITALS (26 sets, daily range): BP systolic 115–148; BP diastolic 56–82
[2021-08-17] MEDS: ROCURONIUM 1250MG/NS 250 250 ML IV SCH (01:58)
[2021-08-17] MEDS: FUROSEMIDE INJ 100 MG in SODIUM CHLORIDE 0.9% 100 ML 90 ML IV SCH ×3 (02:55→23:46)
[2021-08-17] MEDS: PROPOFOL IV EMULSION 10MG/ML 100 ML IV SCH ×5 (02:57→22:58)
[2021-08-17] MEDS: MIDAZOLAM HCL 5MG/ML 10ML VIAL 100 ML IV PRN ×4 (02:58→21:57)
[2021-08-17] MEDS: ALBUMIN 25% 25GM 100ML 100 ML IV SCH (06:05)
[2021-08-17] MEDS: FENTANYL 2000MCG/NS 250 250 ML IV SCH ×3 (06:11→19:33)
[2021-08-17 07:18] LABS: BASOPHILS # (AUTO) 0.1 (0.0-0.1); BASOPHILS % 0.6 % (0.0-1.0); EOSINOPHILS # (AUTO) 1.3 (0.0-0.4); EOSINOPHILS % 8.6 % (0.0-6.0); HEMATOCRIT 33.6 % (38.2-49.6); HEMOGLOBIN 10.4 g/dL (14.0-18.0); LYMPHOCYTES # (AUTO) 1.7 (1.0-3.2); LYMPHOCYTES % 11.1 % (18.0-39.1); MEAN CORPUSCULAR HEMOGLOBIN 30.8 pg (28-32); MEAN CORPUSCULAR VOLUME 99.4 fL (81-99); MONOCYTES # (AUTO) 1.1 (0.2-0.8); MONOCYTES % 6.8 % (4.4-11.3); NEUTROPHILS # (AUTO) 10.4 (2.1-6.9); NEUTROPHILS % 66.9 % (38.7-80.0); PLATELET COUNT 301 x10e3/uL (140-360); RED BLOOD COUNT 3.38 x10e6/uL (4.3-5.7); RED CELL DISTRIBUTION WIDTH 14.3 % (11.7-14.4)
[2021-08-17 07:33] LABS: ALBUMIN 2.9 g/dL (3.5-5.0); ALBUMIN/GLOBULIN RATIO 0.8 (0.8-2.0); ANION GAP 11.8 mmol/L (8-16); CALCIUM 8.7 mg/dL (8.4-10.2); CREATININE, SERUM 0.58 mg/dL (0.72-1.25)
[2021-08-17 07:37] LABS: POTASSIUM 2.8 mmol/L (3.5-5.1)
[2021-08-17 09:08] LABS: ABG HCO3 55 mmol/L (22-26); ABG PCO2 88 mmHg (35-45); ABG PO2 72 mmHg (80-105); ABG TCO2 > 50
[2021-08-17] MEDS: ASCORBIC ACID 500 MG TAB PO SCH ×2 (09:23→19:43)
[2021-08-17] MEDS: ZINC SULFATE 50 MG CAP PO SCH (09:23)
[2021-08-17] MEDS: BALSAM PERU/CASTOR OIL 60 GM OINT...G. TP SCH ×2 (09:23→20:39)
[2021-08-17] MEDS: ENOXAPARIN SODIUM INJ 100 MG/ML SYR SC SCH ×2 (09:23→20:39)
[2021-08-17] MEDS: DOCUSATE SODIUM LIQD 100 MG/10 ML UDC NG SCH ×2 (09:23→19:43)
[2021-08-17] MEDS ORDERED: POTASSIUM CHLORIDE 20MEQ/100ML 200 ML IV ONE ×2 (10:30→19:00)
[2021-08-17] MEDS ORDERED: POTASSIUM CHLORIDE 20MEQ/100ML 300 ML IV ONE (11:30)
[2021-08-17] MEDS ORDERED: POTASSIUM CHLORIDE 20MEQ/100ML 100 ML ONE (20:00)
[2021-08-18] VITALS (26 sets, daily range): BP systolic 107–138; BP diastolic 52–69
[2021-08-18] MEDS: PROPOFOL IV EMULSION 10MG/ML 100 ML IV SCH ×5 (02:35→21:17)
[2021-08-18] MEDS: MIDAZOLAM HCL 5MG/ML 10ML VIAL 100 ML IV PRN ×4 (04:15→23:28)
[2021-08-18] MEDS: ROCURONIUM 1250MG/NS 250 250 ML IV SCH ×2 (05:56→21:44)
[2021-08-18] MEDS: FUROSEMIDE INJ 100 MG in SODIUM CHLORIDE 0.9% 100 ML 90 ML IV SCH ×3 (06:00→21:15)
[2021-08-18 06:31] LABS: BASOPHILS # (AUTO) 0.1 (0.0-0.1); BASOPHILS % 0.4 % (0.0-1.0); EOSINOPHILS # (AUTO) 1.3 (0.0-0.4); EOSINOPHILS % 7.5 % (0.0-6.0); HEMATOCRIT 34.2 % (38.2-49.6); HEMOGLOBIN 11.1 g/dL (14.0-18.0); LYMPHOCYTES # (AUTO) 1.9 (1.0-3.2); MEAN CORPUSCULAR HEMOGLOBIN 32.1 pg (28-32); MEAN CORPUSCULAR HGB CONC 32.5 g/dL (31-35); MEAN CORPUSCULAR VOLUME 98.8 fL (81-99); MONOCYTES # (AUTO) 1.3 (0.2-0.8); MONOCYTES % 7.3 % (4.4-11.3); NEUTROPHILS # (AUTO) 11.3 (2.1-6.9); NEUTROPHILS % 65.7 % (38.7-80.0); PLATELET COUNT 284 x10e3/uL (140-360); RED BLOOD COUNT 3.46 x10e6/uL (4.3-5.7); RED CELL DISTRIBUTION WIDTH 14.6 % (11.7-14.4)
[2021-08-18 07:13] LABS: ALBUMIN/GLOBULIN RATIO 0.7 (0.8-2.0); ANION GAP 15.6 mmol/L (8-16); CALCIUM 8.7 mg/dL (8.4-10.2); CREATININE, SERUM 0.58 mg/dL (0.72-1.25); POTASSIUM 3.6 mmol/L (3.5-5.1)
[2021-08-18] MEDS: FENTANYL 2000MCG/NS 250 250 ML IV SCH ×3 (08:38→23:05)
[2021-08-18 09:25] LABS: ABG HCO3 56 mmol/L (22-26); ABG PCO2 110 mmHg (35-45); ABG PH 7.31 (7.35-7.45); ABG PO2 74 mmHg (80-105); ABG TCO2 > 50
[2021-08-18] MEDS: DOCUSATE SODIUM LIQD 100 MG/10 ML UDC NG SCH ×2 (10:40→17:06)
[2021-08-18] MEDS: ZINC SULFATE 50 MG CAP PO SCH (10:40)
[2021-08-18] MEDS: ASCORBIC ACID 500 MG TAB PO SCH ×2 (10:40→17:06)
[2021-08-18] MEDS: BALSAM PERU/CASTOR OIL 60 GM OINT...G. TP SCH ×2 (10:40→20:43)
[2021-08-18] MEDS: ENOXAPARIN SODIUM INJ 100 MG/ML SYR SC SCH ×2 (10:40→20:43)
[2021-08-18] MEDS: BISACODYL 10 MG SUPP PR PRN (10:41)
[2021-08-19] VITALS (24 sets, daily range): BP systolic 107–159; BP diastolic 56–73
[2021-08-19] MEDS: PROPOFOL IV EMULSION 10MG/ML 100 ML IV SCH ×4 (03:58→17:15)
[2021-08-19] MEDS: MIDAZOLAM HCL 5MG/ML 10ML VIAL 100 ML IV PRN ×4 (04:35→14:00)
[2021-08-19] MEDS: FENTANYL 2000MCG/NS 250 250 ML IV SCH ×3 (05:44→17:22)
[2021-08-19 05:46] LABS: BASOPHILS # (AUTO) 0.1 (0.0-0.1); BASOPHILS % 0.7 % (0.0-1.0); EOSINOPHILS # (AUTO) 0.9 (0.0-0.4); EOSINOPHILS % 5.1 % (0.0-6.0); HEMATOCRIT 34.4 % (38.2-49.6); LYMPHOCYTES # (AUTO) 1.8 (1.0-3.2); LYMPHOCYTES % 10.3 % (18.0-39.1); MEAN CORPUSCULAR HEMOGLOBIN 30.6 pg (28-32); MEAN CORPUSCULAR VOLUME 95.8 fL (81-99); MONOCYTES # (AUTO) 1.3 (0.2-0.8); MONOCYTES % 7.5 % (4.4-11.3); NEUTROPHILS # (AUTO) 11.9 (2.1-6.9); NEUTROPHILS % 67.5 % (38.7-80.0); PLATELET COUNT 290 x10e3/uL (140-360); RED BLOOD COUNT 3.59 x10e6/uL (4.3-5.7); RED CELL DISTRIBUTION WIDTH 14.4 % (11.7-14.4)
[2021-08-19 06:06] LABS: ALBUMIN 2.7 g/dL (3.5-5.0); ALBUMIN/GLOBULIN RATIO 0.7 (0.8-2.0); ANION GAP 14.4 mmol/L (8-16); CALCIUM 8.8 mg/dL (8.4-10.2); CREATININE, SERUM 0.59 mg/dL (0.72-1.25); POTASSIUM 3.4 mmol/L (3.5-5.1)
[2021-08-19] MEDS: FUROSEMIDE INJ 100 MG in SODIUM CHLORIDE 0.9% 100 ML 90 ML IV SCH ×2 (06:17→21:27)
[2021-08-19 08:07] LABS: EOSINOPHILS % (MANUAL) 1 % (0-7); LYMPHOCYTES % (MANUAL) 8 % (19-48); MONOCYTES % (MANUAL) 9 % (3.4-9.0); NEUTROPHILS % (MANUAL) 81 % (40-74); PLATELET ESTIMATE ADEQUATE; PLATELET MORPHOLOGY COMMENT NORMAL; RBC MORPHOLOGY COMMENT NORMAL
[2021-08-19 09:05] LABS: ABG PCO2 80 mmHg (35-45); ABG PH 7.47 (7.35-7.45)
[2021-08-19 09:06] LABS: ABG HCO3 58 mmol/L (22-26); ABG PO2 84 mmHg (80-105); ABG TCO2 > 50
[2021-08-19] MEDS ORDERED: POTASSIUM CHLORIDE 20MEQ/100ML 100 ML IV ONE (09:45)
[2021-08-19] MEDS: ASCORBIC ACID 500 MG TAB PO SCH ×2 (10:23→17:12)
[2021-08-19] MEDS: DOCUSATE SODIUM LIQD 100 MG/10 ML UDC NG SCH ×2 (10:23→17:12)
[2021-08-19] MEDS: BALSAM PERU/CASTOR OIL 60 GM OINT...G. TP SCH ×2 (10:23→21:26)
[2021-08-19] MEDS: ZINC SULFATE 50 MG CAP PO SCH (10:23)
[2021-08-19] MEDS ORDERED: POTASSIUM CHLORIDE 20MEQ/100ML 200 ML IV ONE (10:45)
[2021-08-19] MEDS ORDERED: ACETAZOLAMIDE SODIUM 500 MG/VIAL IV NR ×2 (11:00→16:30)
[2021-08-19] MEDS: ENOXAPARIN SODIUM INJ 100 MG/ML SYR SC SCH ×2 (11:00→21:27)
[2021-08-19] MEDS ORDERED: LACTULOSE SYRUP 20 GM/30 ML UDC PO PRN (11:45)
[2021-08-20] VITALS (25 sets, daily range): BP systolic 81–150; BP diastolic 43–72
[2021-08-20 06:02] LABS: BASOPHILS # (AUTO) 0.2 (0.0-0.1); BASOPHILS % 0.7 % (0.0-1.0); EOSINOPHILS # (AUTO) 0.6 (0.0-0.4); EOSINOPHILS % 2.7 % (0.0-6.0); HEMATOCRIT 35.8 % (38.2-49.6); HEMOGLOBIN 11.6 g/dL (14.0-18.0); LYMPHOCYTES # (AUTO) 2.2 (1.0-3.2); LYMPHOCYTES % 9.5 % (18.0-39.1); MEAN CORPUSCULAR HEMOGLOBIN 30.3 pg (28-32); MEAN CORPUSCULAR HGB CONC 32.4 g/dL (31-35); MEAN CORPUSCULAR VOLUME 93.5 fL (81-99); MONOCYTES # (AUTO) 1.6 (0.2-0.8); MONOCYTES % 6.9 % (4.4-11.3); NEUTROPHILS # (AUTO) 16.4 (2.1-6.9); NEUTROPHILS % 71.9 % (38.7-80.0); PLATELET COUNT 293 x10e3/uL (140-360); RED BLOOD COUNT 3.83 x10e6/uL (4.3-5.7); RED CELL DISTRIBUTION WIDTH 14.6 % (11.7-14.4)
[2021-08-20] MEDS: ROCURONIUM 1250MG/NS 250 250 ML IV SCH (06:02)
[2021-08-20 06:17] LABS: ANION GAP 14.3 mmol/L (8-16); CALCIUM 8.5 mg/dL (8.4-10.2); CREATININE, SERUM 0.6 mg/dL (0.72-1.25); POTASSIUM 3.3 mmol/L (3.5-5.1)
[2021-08-20] MEDS: MIDAZOLAM HCL 5MG/ML 10ML VIAL 100 ML IV PRN ×4 (06:20→22:24)
[2021-08-20] MEDS: FENTANYL 2000MCG/NS 250 250 ML IV SCH ×2 (08:00→22:24)
[2021-08-20] MEDS: PROPOFOL IV EMULSION 10MG/ML 100 ML IV SCH ×3 (08:00→22:22)
[2021-08-20] MEDS ORDERED: POTASSIUM CHLORIDE 20MEQ/100ML 200 ML IV ONE (08:45)
[2021-08-20] MEDS ORDERED: POTASSIUM CHLORIDE 20MEQ/15ML UDC NG SCH (09:00)
[2021-08-20 09:01] LABS: ABG PCO2 77 mmHg (35-45); ABG PH 7.42 (7.35-7.45)
[2021-08-20 09:02] LABS: ABG HCO3 50 mmol/L (22-26); ABG PO2 76 mmHg (80-105); ABG TCO2 > 50
[2021-08-20] MEDS: BALSAM PERU/CASTOR OIL 60 GM OINT...G. TP SCH ×2 (10:54→21:02)
[2021-08-20] MEDS: ASCORBIC ACID 500 MG TAB PO SCH ×2 (10:54→16:31)
[2021-08-20] MEDS: ZINC SULFATE 50 MG CAP PO SCH (10:54)
[2021-08-20] MEDS: DOCUSATE SODIUM LIQD 100 MG/10 ML UDC NG SCH ×2 (10:54→13:02)
[2021-08-20] MEDS: ENOXAPARIN SODIUM INJ 100 MG/ML SYR SC SCH ×2 (10:54→21:00)
[2021-08-20] MEDS: Vancomycin IV 1 GM in SODIUM CHLORIDE 0.9% 250ML 250 ML IV SCH ×2 (10:54→21:02)
[2021-08-20] MEDS ORDERED: ALBUMIN 25% 12.5GM 0.25 GM/ML BTL IV NR (12:45)
[2021-08-20] MEDS: MEROPENEM 1 GM in SODIUM CHLORIDE 0.9% 100 ML IV SCH ×3 (13:02→22:20)
[2021-08-20] MEDS: FUROSEMIDE INJ 100 MG in SODIUM CHLORIDE 0.9% 100 ML 90 ML IV SCH (13:02)
[2021-08-20] MEDS: KCL 20 MEQ PACKET/ ORAL SOLN PO SCH (13:02)
[2021-08-20] MEDS: NOREPINEPHRINE 8 MG/D5W 250 ML 250 ML IV PRN (14:09)
[2021-08-20] MEDS ORDERED: POTASSIUM CHLORIDE 20 MEQ TAB CR PO NR (14:15)
[2021-08-21] VITALS (25 sets, daily range): BP systolic 91–130; BP diastolic 41–65
[2021-08-21] MEDS: PROPOFOL IV EMULSION 10MG/ML 100 ML IV SCH ×3 (02:00→20:30)
[2021-08-21] MEDS: MIDAZOLAM HCL 5MG/ML 10ML VIAL 100 ML IV PRN ×2 (03:16→18:00)
[2021-08-21] MEDS: FUROSEMIDE INJ 100 MG in SODIUM CHLORIDE 0.9% 100 ML 90 ML IV SCH ×3 (04:00→23:30)
[2021-08-21] MEDS: FENTANYL 2000MCG/NS 250 250 ML IV SCH (04:33)
[2021-08-21] MEDS: MEROPENEM 1 GM in SODIUM CHLORIDE 0.9% 100 ML IV SCH ×3 (05:39→21:50)
[2021-08-21] MEDS: ROCURONIUM 1250MG/NS 250 250 ML IV SCH ×2 (05:45→15:00)
[2021-08-21 06:22] LABS: BASOPHILS # (AUTO) 0.2 (0.0-0.1); BASOPHILS % 0.7 % (0.0-1.0); EOSINOPHILS # (AUTO) 0.7 (0.0-0.4); EOSINOPHILS % 3.3 % (0.0-6.0); HEMATOCRIT 32.3 % (38.2-49.6); HEMOGLOBIN 10.3 g/dL (14.0-18.0); LYMPHOCYTES # (AUTO) 1.7 (1.0-3.2); MEAN CORPUSCULAR HEMOGLOBIN 31.2 pg (28-32); MEAN CORPUSCULAR HGB CONC 31.9 g/dL (31-35); MEAN CORPUSCULAR VOLUME 97.9 fL (81-99); MONOCYTES # (AUTO) 1.6 (0.2-0.8); MONOCYTES % 7.4 % (4.4-11.3); NEUTROPHILS # (AUTO) 15.4 (2.1-6.9); PLATELET COUNT 247 x10e3/uL (140-360); RED CELL DISTRIBUTION WIDTH 14.8 % (11.7-14.4)
[2021-08-21 07:19] LABS: ALBUMIN 2.3 g/dL (3.5-5.0); ALBUMIN/GLOBULIN RATIO 0.6 (0.8-2.0); ANION GAP 11.4 mmol/L (8-16); CALCIUM 8.3 mg/dL (8.4-10.2); CREATININE, SERUM 0.54 mg/dL (0.72-1.25); POTASSIUM 3.4 mmol/L (3.5-5.1)
[2021-08-21 08:44] LABS: ABG PH 7.32 (7.35-7.45)
[2021-08-21 08:45] LABS: ABG HCO3 46 mmol/L (22-26); ABG PCO2 88 mmHg (35-45); ABG PO2 64 mmHg (80-105); ABG TCO2 48
[2021-08-21] MEDS: KCL 20 MEQ PACKET/ ORAL SOLN PO SCH (09:00)
[2021-08-21] MEDS: BALSAM PERU/CASTOR OIL 60 GM OINT...G. TP SCH ×2 (09:00→20:35)
[2021-08-21] MEDS: ENOXAPARIN SODIUM INJ 100 MG/ML SYR SC SCH ×2 (09:00→20:35)
[2021-08-21] MEDS: Vancomycin IV 1 GM in SODIUM CHLORIDE 0.9% 250ML 250 ML IV SCH ×2 (09:00→20:34)
[2021-08-21] MEDS: DOCUSATE SODIUM LIQD 100 MG/10 ML UDC NG SCH ×2 (09:00→17:00)
[2021-08-21] MEDS ORDERED: FENTANYL 2000MCG/NS 250 250 ML IV SCH (11:00)
[2021-08-21] MEDS ORDERED: ACETAMINOPHEN 325 MG TAB ONE (15:23)
[2021-08-22] VITALS (26 sets, daily range): BP systolic 92–156; BP diastolic 42–65
[2021-08-22] MEDS: MIDAZOLAM HCL 5MG/ML 10ML VIAL 100 ML IV PRN ×5 (00:29→21:50)
[2021-08-22] MEDS: FENTANYL 2000MCG/NS 250 250 ML IV PRN ×4 (00:48→21:51)
[2021-08-22] MEDS: PROPOFOL IV EMULSION 10MG/ML 100 ML IV SCH ×7 (01:30→22:25)
[2021-08-22] MEDS: ROCURONIUM 1250MG/NS 250 250 ML IV SCH ×2 (03:59→17:51)
[2021-08-22] MEDS: MEROPENEM 1 GM in SODIUM CHLORIDE 0.9% 100 ML IV SCH ×3 (05:05→22:27)
[2021-08-22 06:50] LABS: BASOPHILS # (AUTO) 0.3 (0.0-0.1); BASOPHILS % 1.1 % (0.0-1.0); EOSINOPHILS # (AUTO) 0.7 (0.0-0.4); EOSINOPHILS % 2.8 % (0.0-6.0); HEMATOCRIT 31.4 % (38.2-49.6); HEMOGLOBIN 9.5 g/dL (14.0-18.0); LYMPHOCYTES % 7.8 % (18.0-39.1); MEAN CORPUSCULAR HEMOGLOBIN 30.9 pg (28-32); MEAN CORPUSCULAR HGB CONC 30.3 g/dL (31-35); MEAN CORPUSCULAR VOLUME 102.3 fL (81-99); MONOCYTES # (AUTO) 2.3 (0.2-0.8); MONOCYTES % 9.1 % (4.4-11.3); NEUTROPHILS # (AUTO) 17.4 (2.1-6.9); NEUTROPHILS % 69.8 % (38.7-80.0); PLATELET COUNT 277 x10e3/uL (140-360); RED BLOOD COUNT 3.07 x10e6/uL (4.3-5.7); RED CELL DISTRIBUTION WIDTH 14.8 % (11.7-14.4)
[2021-08-22 07:17] LABS: ALBUMIN 2.3 g/dL (3.5-5.0); ALBUMIN/GLOBULIN RATIO 0.6 (0.8-2.0); ANION GAP 13.7 mmol/L (8-16); CALCIUM 8.4 mg/dL (8.4-10.2); CREATININE, SERUM 0.57 mg/dL (0.72-1.25); POTASSIUM 3.7 mmol/L (3.5-5.1)
[2021-08-22] MEDS: FUROSEMIDE INJ 100 MG in SODIUM CHLORIDE 0.9% 100 ML 90 ML IV SCH ×2 (07:44→17:50)
[2021-08-22 07:48] LABS: EOSINOPHILS % (MANUAL) 2 % (0-7); LYMPHOCYTES % (MANUAL) 7 % (19-48); METAMYELOCYTES % (MANUAL) 2 % (0-0); MONOCYTES % (MANUAL) 12 % (3.4-9.0); MYELOCYTES % (MANUAL) 4 % (0-0); NEUTROPHILS % (MANUAL) 73 % (40-74)
[2021-08-22 07:49] LABS: ABG HCO3 45 mmol/L (22-26); ABG PCO2 85 mmHg (35-45); ABG PH 7.33 (7.35-7.45); ABG PO2 66 mmHg (80-105); ABG TCO2 48
[2021-08-22 07:50] LABS: PLATELET ESTIMATE ADEQUATE; PLATELET MORPHOLOGY COMMENT NORMAL; RBC MORPHOLOGY COMMENT NORMAL
[2021-08-22] MEDS: DOCUSATE SODIUM LIQD 100 MG/10 ML UDC NG SCH ×2 (08:25→16:10)
[2021-08-22] MEDS: Vancomycin IV 1 GM in SODIUM CHLORIDE 0.9% 250ML 250 ML IV SCH ×2 (08:25→21:48)
[2021-08-22] MEDS: BALSAM PERU/CASTOR OIL 60 GM OINT...G. TP SCH ×2 (08:26→21:48)
[2021-08-22] MEDS: ENOXAPARIN SODIUM INJ 100 MG/ML SYR SC SCH ×2 (08:26→21:48)
[2021-08-22] MEDS: KCL 20 MEQ PACKET/ ORAL SOLN PO SCH (08:26)
[2021-08-22] MEDS ORDERED: ALBUMIN 25% 25GM 100ML 0.25 GM/ML BTL IV SCH (10:45)
[2021-08-22] MEDS: ALBUMIN 25% 25GM 100ML 100 ML IV SCH ×2 (11:35→17:22)
[2021-08-23] VITALS (27 sets, daily range): BP systolic 98–142; BP diastolic 49–78
[2021-08-23] MEDS: PROPOFOL IV EMULSION 10MG/ML 100 ML IV SCH ×7 (01:35→22:04)
[2021-08-23] MEDS: ALBUMIN 25% 25GM 100ML 100 ML IV SCH (02:01)
[2021-08-23] MEDS: FLUCONAZOLE 200 MG/100 ML 100 ML IV SCH (02:01)
[2021-08-23] MEDS: MIDAZOLAM HCL 5MG/ML 10ML VIAL 100 ML IV PRN ×5 (02:40→23:00)
[2021-08-23] MEDS: FUROSEMIDE INJ 100 MG in SODIUM CHLORIDE 0.9% 100 ML 90 ML IV SCH ×3 (04:37→14:52)
[2021-08-23] MEDS: FENTANYL 2000MCG/NS 250 250 ML IV PRN ×2 (04:39→11:45)
[2021-08-23] MEDS: MEROPENEM 1 GM in SODIUM CHLORIDE 0.9% 100 ML IV SCH ×3 (05:41→22:04)
[2021-08-23 05:51] LABS: BASOPHILS # (AUTO) 0.1 (0.0-0.1); BASOPHILS % 0.7 % (0.0-1.0); EOSINOPHILS # (AUTO) 0.6 (0.0-0.4); EOSINOPHILS % 3.4 % (0.0-6.0); HEMATOCRIT 26.2 % (38.2-49.6); LYMPHOCYTES % 10.8 % (18.0-39.1); MEAN CORPUSCULAR HEMOGLOBIN 30.5 pg (28-32); MEAN CORPUSCULAR HGB CONC 30.5 g/dL (31-35); MONOCYTES # (AUTO) 1.6 (0.2-0.8); NEUTROPHILS # (AUTO) 12.5 (2.1-6.9); NEUTROPHILS % 69.2 % (38.7-80.0); PLATELET COUNT 263 x10e3/uL (140-360); RED BLOOD COUNT 2.62 x10e6/uL (4.3-5.7); RED CELL DISTRIBUTION WIDTH 15.3 % (11.7-14.4)
[2021-08-23 06:39] LABS: ALBUMIN 2.9 g/dL (3.5-5.0); ALBUMIN/GLOBULIN RATIO 0.8 (0.8-2.0); ANION GAP 10.9 mmol/L (8-16); CALCIUM 8.5 mg/dL (8.4-10.2); CREATININE, SERUM 0.53 mg/dL (0.72-1.25)
[2021-08-23 06:42] LABS: POTASSIUM 2.9 mmol/L (3.5-5.1)
[2021-08-23] MEDS ORDERED: POTASSIUM CHLORIDE 20MEQ/100ML 200 ML IV ONE ×2 (07:15→16:00)
[2021-08-23] MEDS: DOCUSATE SODIUM LIQD 100 MG/10 ML UDC NG SCH ×2 (07:31→16:58)
[2021-08-23] MEDS: ENOXAPARIN SODIUM INJ 100 MG/ML SYR SC SCH ×2 (07:31→22:04)
[2021-08-23] MEDS: KCL 20 MEQ PACKET/ ORAL SOLN PO SCH (07:31)
[2021-08-23] MEDS: BALSAM PERU/CASTOR OIL 60 GM OINT...G. TP SCH ×2 (07:31→22:04)
[2021-08-23] MEDS: Vancomycin IV 1 GM in SODIUM CHLORIDE 0.9% 250ML 250 ML IV SCH ×2 (07:51→22:04)
[2021-08-23] MEDS: ROCURONIUM 1250MG/NS 250 250 ML IV SCH (07:52)
[2021-08-23 08:50] LABS: ABG HCO3 51 mmol/L (22-26); ABG PCO2 101 mmHg (35-45); ABG PH 7.32 (7.35-7.45); ABG PO2 85 mmHg (80-105); ABG TCO2 > 50
[2021-08-23] MEDS ORDERED: SODIUM CHLORIDE 0.9% 100 ML ONE (13:06)
[2021-08-23 14:26] LABS: ANION GAP 12.3 mmol/L (8-16); CALCIUM 8.4 mg/dL (8.4-10.2); CREATININE, SERUM 0.53 mg/dL (0.72-1.25); POTASSIUM 3.3 mmol/L (3.5-5.1)
[2021-08-23] MEDS ORDERED: SODIUM CHLORIDE 0.9% 250ML 250 ML ONE (15:34)
[2021-08-24] VITALS (25 sets, daily range): BP systolic 82–137; BP diastolic 38–63
[2021-08-24] MEDS: FUROSEMIDE INJ 100 MG in SODIUM CHLORIDE 0.9% 100 ML 90 ML IV SCH ×3 (00:13→13:04)
[2021-08-24] MEDS: PROPOFOL IV EMULSION 10MG/ML 100 ML IV SCH ×5 (01:00→13:40)
[2021-08-24] MEDS: FLUCONAZOLE 200 MG/100 ML 100 ML IV SCH (01:30)
[2021-08-24] MEDS: FENTANYL 2000MCG/NS 250 250 ML IV PRN ×4 (01:31→22:08)
[2021-08-24] MEDS: MIDAZOLAM HCL 5MG/ML 10ML VIAL 100 ML IV PRN ×4 (04:33→20:50)
[2021-08-24] MEDS: MEROPENEM 1 GM in SODIUM CHLORIDE 0.9% 100 ML IV SCH ×3 (05:25→21:08)
[2021-08-24 06:06] LABS: BASOPHILS # (AUTO) 0.2 (0.0-0.1); BASOPHILS % 0.8 % (0.0-1.0); EOSINOPHILS # (AUTO) 0.6 (0.0-0.4); EOSINOPHILS % 2.6 % (0.0-6.0); HEMATOCRIT 26.9 % (38.2-49.6); HEMOGLOBIN 8.3 g/dL (14.0-18.0); LYMPHOCYTES # (AUTO) 2.3 (1.0-3.2); LYMPHOCYTES % 9.9 % (18.0-39.1); MEAN CORPUSCULAR HEMOGLOBIN 31.2 pg (28-32); MEAN CORPUSCULAR HGB CONC 30.9 g/dL (31-35); MEAN CORPUSCULAR VOLUME 101.1 fL (81-99); MONOCYTES # (AUTO) 2.1 (0.2-0.8); NEUTROPHILS # (AUTO) 16.9 (2.1-6.9); NEUTROPHILS % 71.6 % (38.7-80.0); PLATELET COUNT 329 x10e3/uL (140-360); RED BLOOD COUNT 2.66 x10e6/uL (4.3-5.7); RED CELL DISTRIBUTION WIDTH 15.8 % (11.7-14.4)
[2021-08-24 06:30] LABS: ALBUMIN 2.5 g/dL (3.5-5.0); ALBUMIN/GLOBULIN RATIO 0.7 (0.8-2.0); ANION GAP 13.2 mmol/L (8-16); CALCIUM 8.9 mg/dL (8.4-10.2); CREATININE, SERUM 0.51 mg/dL (0.72-1.25); POTASSIUM 3.2 mmol/L (3.5-5.1)
[2021-08-24] MEDS: KCL 20 MEQ PACKET/ ORAL SOLN PO SCH (07:55)
[2021-08-24] MEDS: ENOXAPARIN SODIUM INJ 100 MG/ML SYR SC SCH ×2 (07:55→20:47)
[2021-08-24] MEDS: BALSAM PERU/CASTOR OIL 60 GM OINT...G. TP SCH ×2 (07:55→20:47)
[2021-08-24] MEDS: DOCUSATE SODIUM LIQD 100 MG/10 ML UDC NG SCH ×2 (07:55→17:18)
[2021-08-24 08:28] LABS: ABG HCO3 52 mmol/L (22-26); ABG PCO2 78 mmHg (35-45); ABG PH 7.43 (7.35-7.45); ABG PO2 59 mmHg (80-105); ABG TCO2 > 50
[2021-08-24] MEDS ORDERED: POTASSIUM CHLORIDE 20MEQ/100ML 200 ML IV ONE ×2 (11:00→13:30)
[2021-08-24] MEDS ORDERED: ALBUMIN 25% 25GM 100ML 0.25 GM/ML BTL IV SCH (11:15)
[2021-08-24] MEDS ORDERED: ACETAZOLAMIDE SODIUM 500 MG/VIAL IV ONE (11:30)
[2021-08-24] MEDS: ALBUMIN 25% 25GM 100ML 100 ML IV SCH ×2 (13:04→20:27)
[2021-08-24] MEDS: ROCURONIUM 1250MG/NS 250 250 ML IV SCH (13:40)
[2021-08-25] VITALS (27 sets, daily range): BP systolic 82–123; BP diastolic 39–67
[2021-08-25] MEDS: PROPOFOL IV EMULSION 10MG/ML 100 ML IV SCH ×6 (01:04→23:45)
[2021-08-25] MEDS: FLUCONAZOLE 200 MG/100 ML 100 ML IV SCH (01:27)
[2021-08-25] MEDS: MIDAZOLAM HCL 5MG/ML 10ML VIAL 100 ML IV PRN ×4 (02:07→23:45)
[2021-08-25] MEDS: ALBUMIN 25% 25GM 100ML 100 ML IV SCH (04:24)
[2021-08-25] MEDS: FUROSEMIDE INJ 100 MG in SODIUM CHLORIDE 0.9% 100 ML 90 ML IV SCH ×2 (04:24→22:33)
[2021-08-25] MEDS: MEROPENEM 1 GM in SODIUM CHLORIDE 0.9% 100 ML IV SCH ×3 (05:12→23:59)
[2021-08-25] MEDS: ROCURONIUM 1250MG/NS 250 250 ML IV SCH ×2 (05:13→17:31)
[2021-08-25] MEDS: FENTANYL 2000MCG/NS 250 250 ML IV PRN ×3 (05:46→17:42)
[2021-08-25 06:10] LABS: BASOPHILS # (AUTO) 0.1 (0.0-0.1); BASOPHILS % 0.8 % (0.0-1.0); EOSINOPHILS # (AUTO) 0.8 (0.0-0.4); EOSINOPHILS % 4.3 % (0.0-6.0); HEMATOCRIT 23.2 % (38.2-49.6); LYMPHOCYTES # (AUTO) 1.8 (1.0-3.2); LYMPHOCYTES % 9.8 % (18.0-39.1); MEAN CORPUSCULAR HEMOGLOBIN 30.9 pg (28-32); MEAN CORPUSCULAR HGB CONC 29.7 g/dL (31-35); MONOCYTES # (AUTO) 1.6 (0.2-0.8); MONOCYTES % 8.8 % (4.4-11.3); NEUTROPHILS # (AUTO) 12.5 (2.1-6.9); NEUTROPHILS % 70.2 % (38.7-80.0); PLATELET COUNT 333 x10e3/uL (140-360); RED BLOOD COUNT 2.23 x10e6/uL (4.3-5.7); RED CELL DISTRIBUTION WIDTH 16.1 % (11.7-14.4)
[2021-08-25 06:23] LABS: HEMOGLOBIN 6.9 g/dL (14.0-18.0)
[2021-08-25 06:32] LABS: ALBUMIN 2.9 g/dL (3.5-5.0); ALBUMIN/GLOBULIN RATIO 0.9 (0.8-2.0); ANION GAP 13.5 mmol/L (8-16); CALCIUM 8.5 mg/dL (8.4-10.2); CREATININE, SERUM 0.56 mg/dL (0.72-1.25); POTASSIUM 3.5 mmol/L (3.5-5.1)
[2021-08-25 06:47] LABS: HEMATOCRIT 22.2 % (38.2-49.6)
[2021-08-25 06:52] LABS: HEMOGLOBIN 6.6 g/dL (14.0-18.0)
[2021-08-25] MEDS ORDERED: SODIUM CHLORIDE 0.9% 250ML 250 ML IV ONE (08:00)
[2021-08-25] MEDS: KCL 20 MEQ PACKET/ ORAL SOLN PO SCH (08:26)
[2021-08-25] MEDS: ENOXAPARIN SODIUM INJ 100 MG/ML SYR SC SCH ×2 (08:26→21:27)
[2021-08-25] MEDS: DOCUSATE SODIUM LIQD 100 MG/10 ML UDC NG SCH ×2 (08:26→17:30)
[2021-08-25] MEDS: BALSAM PERU/CASTOR OIL 60 GM OINT...G. TP SCH ×2 (08:26→21:27)
[2021-08-25 08:38] LABS: EOSINOPHILS % (MANUAL) 1 % (0-7); LYMPHOCYTES % (MANUAL) 8 % (19-48); MONOCYTES % (MANUAL) 6 % (3.4-9.0); MYELOCYTES % (MANUAL) 1 % (0-0); NEUTROPHILS % (MANUAL) 83 % (40-74); PLATELET ESTIMATE ADEQUATE; PLATELET MORPHOLOGY COMMENT MODERATE LARGE; RBC MORPHOLOGY COMMENT NORMAL
[2021-08-25] MEDS: Vancomycin IV 1 GM in SODIUM CHLORIDE 0.9% 250ML 250 ML IV SCH (09:09)
[2021-08-25 09:55] LABS: ABG HCO3 47 mmol/L (22-26); ABG PCO2 77 mmHg (35-45); ABG PO2 77 mmHg (80-105); ABG TCO2 49
[2021-08-25] MEDS ORDERED: SODIUM CHLORIDE 0.9% 100 ML ONE (14:02)
[2021-08-25] MEDS: NOREPINEPHRINE 8 MG/D5W 250 ML 250 ML IV PRN (20:25)
[2021-08-25] MEDS ORDERED: HEPARIN SOD (PORCINE) 1000 UNIT/ML SDV ONE (22:26)
[2021-08-26] VITALS (26 sets, daily range): BP systolic 90–119; BP diastolic 40–58
[2021-08-26] MEDS: PROPOFOL IV EMULSION 10MG/ML 100 ML IV SCH ×5 (03:28→21:42)
[2021-08-26] MEDS: FENTANYL 2000MCG/NS 250 250 ML IV PRN ×3 (03:29→23:16)
[2021-08-26] MEDS: FLUCONAZOLE 200 MG/100 ML 100 ML IV SCH (03:36)
[2021-08-26 05:41] LABS: BASOPHILS # (AUTO) 0.1 (0.0-0.1); BASOPHILS % 0.7 % (0.0-1.0); EOSINOPHILS # (AUTO) 1.1 (0.0-0.4); EOSINOPHILS % 5.2 % (0.0-6.0); HEMATOCRIT 25.9 % (38.2-49.6); LYMPHOCYTES # (AUTO) 2.5 (1.0-3.2); LYMPHOCYTES % 12.2 % (18.0-39.1); MEAN CORPUSCULAR HEMOGLOBIN 31.3 pg (28-32); MEAN CORPUSCULAR HGB CONC 30.9 g/dL (31-35); MEAN CORPUSCULAR VOLUME 101.2 fL (81-99); MONOCYTES # (AUTO) 1.7 (0.2-0.8); MONOCYTES % 8.4 % (4.4-11.3); NEUTROPHILS # (AUTO) 13.8 (2.1-6.9); NEUTROPHILS % 66.2 % (38.7-80.0); PLATELET COUNT 372 x10e3/uL (140-360); RED BLOOD COUNT 2.56 x10e6/uL (4.3-5.7); RED CELL DISTRIBUTION WIDTH 16.1 % (11.7-14.4)
[2021-08-26] MEDS: MEROPENEM 1 GM in SODIUM CHLORIDE 0.9% 100 ML IV SCH ×3 (05:42→22:13)
[2021-08-26] MEDS: MIDAZOLAM HCL 5MG/ML 10ML VIAL 100 ML IV PRN ×4 (05:43→21:43)
[2021-08-26 06:11] LABS: ALBUMIN 2.8 g/dL (3.5-5.0); ALBUMIN/GLOBULIN RATIO 0.7 (0.8-2.0); ANION GAP 13.9 mmol/L (8-16); CREATININE, SERUM 0.56 mg/dL (0.72-1.25); POTASSIUM 3.9 mmol/L (3.5-5.1)
[2021-08-26] MEDS: Vancomycin IV 1 GM in SODIUM CHLORIDE 0.9% 250ML 250 ML IV SCH (08:25)
[2021-08-26] MEDS: KCL 20 MEQ PACKET/ ORAL SOLN PO SCH (08:25)
[2021-08-26] MEDS: DOCUSATE SODIUM LIQD 100 MG/10 ML UDC NG SCH ×2 (08:25→17:39)
[2021-08-26] MEDS: BALSAM PERU/CASTOR OIL 60 GM OINT...G. TP SCH ×2 (08:27→22:13)
[2021-08-26] MEDS: ENOXAPARIN SODIUM INJ 100 MG/ML SYR SC SCH ×2 (08:27→22:13)
[2021-08-26] MEDS: ROCURONIUM 1250MG/NS 250 250 ML IV SCH ×2 (08:47→23:15)
[2021-08-26 09:11] LABS: ABG HCO3 49 mmol/L (22-26); ABG PCO2 103 mmHg (35-45); ABG PH 7.29 (7.35-7.45); ABG PO2 64 mmHg (80-105); ABG TCO2 > 50
[2021-08-26] MEDS ORDERED: SODIUM CHLORIDE 0.9% 1000ML 2,000 ML IV PRN (10:00)
[2021-08-26] MEDS ORDERED: HEPARIN SOD (PORCINE) 1000 UNIT/ML SDV IV PRN (10:00)
[2021-08-26] MEDS ORDERED: SODIUM CHLORIDE 0.9% 250ML 500 ML IV PRN (10:00)
[2021-08-26] MEDS: NOREPINEPHRINE 8 MG/D5W 250 ML 250 ML IV PRN (18:41)
[2021-08-27] VITALS (25 sets, daily range): BP systolic 97–123; BP diastolic 45–55
[2021-08-27] MEDS: PROPOFOL IV EMULSION 10MG/ML 100 ML IV SCH ×3 (00:38→07:37)
[2021-08-27] MEDS: FLUCONAZOLE 200 MG/100 ML 100 ML IV SCH (01:45)
[2021-08-27] MEDS: MIDAZOLAM HCL 5MG/ML 10ML VIAL 100 ML IV PRN ×4 (02:48→23:30)
[2021-08-27] MEDS: MEROPENEM 1 GM in SODIUM CHLORIDE 0.9% 100 ML IV SCH (06:08)
[2021-08-27] MEDS: FENTANYL 2000MCG/NS 250 250 ML IV PRN ×3 (06:50→20:30)
[2021-08-27 07:12] LABS: BASOPHILS # (AUTO) 0.2 (0.0-0.1); BASOPHILS % 0.8 % (0.0-1.0); EOSINOPHILS # (AUTO) 1.2 (0.0-0.4); HEMATOCRIT 26.2 % (38.2-49.6); HEMOGLOBIN 7.8 g/dL (14.0-18.0); MEAN CORPUSCULAR HEMOGLOBIN 31.1 pg (28-32); MEAN CORPUSCULAR HGB CONC 29.8 g/dL (31-35); MEAN CORPUSCULAR VOLUME 104.4 fL (81-99); MONOCYTES # (AUTO) 1.8 (0.2-0.8); MONOCYTES % 8.7 % (4.4-11.3); NEUTROPHILS # (AUTO) 13.5 (2.1-6.9); NEUTROPHILS % 66.2 % (38.7-80.0); PLATELET COUNT 399 x10e3/uL (140-360); RED BLOOD COUNT 2.51 x10e6/uL (4.3-5.7); RED CELL DISTRIBUTION WIDTH 15.9 % (11.7-14.4)
[2021-08-27 07:45] LABS: ALBUMIN 2.5 g/dL (3.5-5.0); ALBUMIN/GLOBULIN RATIO 0.6 (0.8-2.0); ANION GAP 12.3 mmol/L (8-16); CALCIUM 8.5 mg/dL (8.4-10.2); CREATININE, SERUM 0.5 mg/dL (0.72-1.25); POTASSIUM 4.3 mmol/L (3.5-5.1)
[2021-08-27] MEDS: BALSAM PERU/CASTOR OIL 60 GM OINT...G. TP SCH ×2 (07:54→21:10)
[2021-08-27] MEDS: DOCUSATE SODIUM LIQD 100 MG/10 ML UDC NG SCH ×2 (07:54→16:15)
[2021-08-27] MEDS: ENOXAPARIN SODIUM INJ 100 MG/ML SYR SC SCH ×2 (07:54→21:10)
[2021-08-27 08:52] LABS: ABG HCO3 47 mmol/L (22-26); ABG PCO2 91 mmHg (35-45); ABG PH 7.32 (7.35-7.45); ABG PO2 63 mmHg (80-105); ABG TCO2 49
[2021-08-27 11:59] LABS: BAND NEUTROPHILS % (MANUAL) 4 %; EOSINOPHILS % (MANUAL) 4 % (0-7); LYMPHOCYTES % (MANUAL) 8 % (19-48); METAMYELOCYTES % (MANUAL) 3 % (0-0); MONOCYTES % (MANUAL) 6 % (3.4-9.0); NEUTROPHILS % (MANUAL) 75 % (40-74)
[2021-08-27 12:01] LABS: ANISOCYTOSIS SLIGHT; PLATELET ESTIMATE ADEQUATE; PLATELET MORPHOLOGY COMMENT NORMAL; POLYCHROMASIA FEW; RBC MORPHOLOGY COMMENT ABNORMAL
[2021-08-27] MEDS ORDERED: ACETAMINOPHEN 325 MG TAB PO PRN (12:45)
[2021-08-27] MEDS: ROCURONIUM 1250MG/NS 250 250 ML IV SCH (13:15)
[2021-08-27] MEDS: PROPOFOL IV EMULSION 50 ML IV SCH ×2 (19:30→22:10)
[2021-08-28] VITALS (29 sets, daily range): BP systolic 90–118; BP diastolic 42–55
[2021-08-28] MEDS: NOREPINEPHRINE 8 MG/D5W 250 ML 250 ML IV PRN (01:15)
[2021-08-28] MEDS: PROPOFOL IV EMULSION 50 ML IV SCH ×5 (01:38→16:30)
[2021-08-28] MEDS: FLUCONAZOLE 200 MG/100 ML 100 ML IV SCH ×2 (01:49→08:46)
[2021-08-28] MEDS: MIDAZOLAM HCL 5MG/ML 10ML VIAL 100 ML IV PRN ×4 (04:13→21:53)
[2021-08-28] MEDS: FENTANYL 2000MCG/NS 250 250 ML IV PRN ×3 (04:13→16:55)
[2021-08-28] MEDS: ROCURONIUM 1250MG/NS 250 250 ML IV SCH (04:14)
[2021-08-28 06:30] LABS: BASOPHILS # (AUTO) 0.2 (0.0-0.1); BASOPHILS % 0.6 % (0.0-1.0); EOSINOPHILS # (AUTO) 0.7 (0.0-0.4); EOSINOPHILS % 2.8 % (0.0-6.0); HEMATOCRIT 25.4 % (38.2-49.6); HEMOGLOBIN 7.6 g/dL (14.0-18.0); LYMPHOCYTES # (AUTO) 2.3 (1.0-3.2); LYMPHOCYTES % 9.6 % (18.0-39.1); MEAN CORPUSCULAR HEMOGLOBIN 31.3 pg (28-32); MEAN CORPUSCULAR HGB CONC 29.9 g/dL (31-35); MEAN CORPUSCULAR VOLUME 104.5 fL (81-99); MONOCYTES # (AUTO) 2.3 (0.2-0.8); MONOCYTES % 9.7 % (4.4-11.3); NEUTROPHILS # (AUTO) 16.2 (2.1-6.9); NEUTROPHILS % 69.1 % (38.7-80.0); PLATELET COUNT 428 x10e3/uL (140-360); RED BLOOD COUNT 2.43 x10e6/uL (4.3-5.7); RED CELL DISTRIBUTION WIDTH 15.9 % (11.7-14.4)
[2021-08-28 06:50] LABS: ALBUMIN 2.3 g/dL (3.5-5.0); ALBUMIN/GLOBULIN RATIO 0.5 (0.8-2.0); ANION GAP 10.7 mmol/L (8-16); CALCIUM 8.7 mg/dL (8.4-10.2); CREATININE, SERUM 0.52 mg/dL (0.72-1.25); POTASSIUM 4.7 mmol/L (3.5-5.1)
[2021-08-28 08:34] LABS: BAND NEUTROPHILS % (MANUAL) 2 %; EOSINOPHILS % (MANUAL) 2 % (0-7); LYMPHOCYTES % (MANUAL) 8 % (19-48); MONOCYTES % (MANUAL) 5 % (3.4-9.0); MYELOCYTES % (MANUAL) 9 % (0-0); NEUTROPHILS % (MANUAL) 74 % (40-74); NUCLEATED RED BLOOD CELLS 2
[2021-08-28 08:35] LABS: ANISOCYTOSIS MODERATE; HYPOCHROMASIA MODERATE; PLATELET ESTIMATE ADEQUATE; PLATELET MORPHOLOGY COMMENT NORMAL; POLYCHROMASIA FEW; RBC MORPHOLOGY COMMENT ABNORMAL
[2021-08-28] MEDS: ENOXAPARIN SODIUM INJ 100 MG/ML SYR SC SCH ×2 (08:46→21:12)
[2021-08-28] MEDS: BALSAM PERU/CASTOR OIL 60 GM OINT...G. TP SCH ×2 (08:46→21:12)
[2021-08-28] MEDS: DOCUSATE SODIUM LIQD 100 MG/10 ML UDC NG SCH ×2 (08:46→16:31)
[2021-08-28 09:27] LABS: ABG PH 7.28 (7.35-7.45)
[2021-08-28 09:28] LABS: ABG HCO3 46 mmol/L (22-26); ABG PCO2 98 mmHg (35-45); ABG PO2 61 mmHg (80-105); ABG TCO2 49
[2021-08-28] MEDS: LINEZOLID 600 MG/D5W 300ML 300 ML IV SCH (14:03)
[2021-08-28] MEDS: CEFEPIME 2 GM in SODIUM CHLORIDE 0.9% 100 ML IV SCH ×2 (14:30→21:53)
[2021-08-28] MEDS: PROPOFOL IV EMULSION 10MG/ML 100 ML IV SCH ×2 (20:25→23:34)
[2021-08-29] VITALS (29 sets, daily range): BP systolic 102–140; BP diastolic 47–69
[2021-08-29] MEDS: FENTANYL 2000MCG/NS 250 250 ML IV PRN ×4 (01:04→22:51)
[2021-08-29] MEDS: LINEZOLID 600 MG/D5W 300ML 300 ML IV SCH ×2 (03:00→15:01)
[2021-08-29] MEDS: PROPOFOL IV EMULSION 10MG/ML 100 ML IV SCH ×5 (03:19→21:25)
[2021-08-29] MEDS: MIDAZOLAM HCL 5MG/ML 10ML VIAL 100 ML IV PRN ×4 (03:27→18:33)
[2021-08-29] MEDS: ROCURONIUM 1250MG/NS 250 250 ML IV SCH ×2 (05:12→18:26)
[2021-08-29] MEDS: CEFEPIME 2 GM in SODIUM CHLORIDE 0.9% 100 ML IV SCH ×3 (05:56→20:39)
[2021-08-29 06:06] LABS: BASOPHILS # (AUTO) 0.1 (0.0-0.1); BASOPHILS % 0.5 % (0.0-1.0); EOSINOPHILS # (AUTO) 1.3 (0.0-0.4); EOSINOPHILS % 5.1 % (0.0-6.0); HEMATOCRIT 22.8 % (38.2-49.6); LYMPHOCYTES # (AUTO) 2.1 (1.0-3.2); LYMPHOCYTES % 8.5 % (18.0-39.1); MEAN CORPUSCULAR HEMOGLOBIN 31.8 pg (28-32); MEAN CORPUSCULAR HGB CONC 30.7 g/dL (31-35); MEAN CORPUSCULAR VOLUME 103.6 fL (81-99); MONOCYTES # (AUTO) 1.9 (0.2-0.8); MONOCYTES % 7.8 % (4.4-11.3); NEUTROPHILS # (AUTO) 17.2 (2.1-6.9); NEUTROPHILS % 69.6 % (38.7-80.0); PLATELET COUNT 353 x10e3/uL (140-360); RED CELL DISTRIBUTION WIDTH 16.1 % (11.7-14.4)
[2021-08-29 06:33] LABS: ALBUMIN 2.2 g/dL (3.5-5.0); ALBUMIN/GLOBULIN RATIO 0.5 (0.8-2.0); ANION GAP 10.8 mmol/L (8-16); CALCIUM 8.6 mg/dL (8.4-10.2); CREATININE, SERUM 0.49 mg/dL (0.72-1.25); POTASSIUM 4.8 mmol/L (3.5-5.1)
[2021-08-29 08:45] LABS: ABG HCO3 44 mmol/L (22-26); ABG PCO2 94 mmHg (35-45); ABG PH 7.28 (7.35-7.45); ABG PO2 67 mmHg (80-105); ABG TCO2 47
[2021-08-29] MEDS: ENOXAPARIN SODIUM INJ 100 MG/ML SYR SC SCH ×2 (09:00→20:50)
[2021-08-29] MEDS: BALSAM PERU/CASTOR OIL 60 GM OINT...G. TP SCH ×2 (09:00→15:01)
[2021-08-29] MEDS: DOCUSATE SODIUM LIQD 100 MG/10 ML UDC NG SCH ×2 (09:00→17:00)
[2021-08-29] MEDS ORDERED: SODIUM CHLORIDE 0.9% 50ML 0 ML ONE (13:03)
[2021-08-29] MEDS ORDERED: IOPAMIDOL 370 MG/ML 200 ML INFUS..BTL INJ ONE (13:03)
[2021-08-29] MEDS: NOREPINEPHRINE 8 MG/D5W 250 ML 250 ML IV PRN (18:28)
[2021-08-30] VITALS (28 sets, daily range): BP systolic 84–115; BP diastolic 48–66
[2021-08-30] MEDS: MIDAZOLAM HCL 5MG/ML 10ML VIAL 100 ML IV PRN ×5 (00:33→21:40)
[2021-08-30] MEDS: PROPOFOL IV EMULSION 10MG/ML 100 ML IV SCH ×7 (00:49→23:30)
[2021-08-30] MEDS: FLUCONAZOLE 200 MG/100 ML 100 ML IV SCH (01:30)
[2021-08-30] MEDS: LINEZOLID 600 MG/D5W 300ML 300 ML IV SCH ×2 (03:43→14:11)
[2021-08-30] MEDS: CEFEPIME 2 GM in SODIUM CHLORIDE 0.9% 100 ML IV SCH ×3 (05:54→21:25)
[2021-08-30 06:01] LABS: BASOPHILS # (AUTO) 0.2 (0.0-0.1); BASOPHILS % 0.6 % (0.0-1.0); EOSINOPHILS # (AUTO) 0.9 (0.0-0.4); EOSINOPHILS % 3.3 % (0.0-6.0); HEMATOCRIT 21.6 % (38.2-49.6); LYMPHOCYTES # (AUTO) 2.5 (1.0-3.2); MEAN CORPUSCULAR HEMOGLOBIN 31.2 pg (28-32); MEAN CORPUSCULAR HGB CONC 29.6 g/dL (31-35); MEAN CORPUSCULAR VOLUME 105.4 fL (81-99); MONOCYTES % 6.9 % (4.4-11.3); NEUTROPHILS # (AUTO) 19.7 (2.1-6.9); NEUTROPHILS % 69.8 % (38.7-80.0); PLATELET COUNT 394 x10e3/uL (140-360); RED BLOOD COUNT 2.05 x10e6/uL (4.3-5.7); RED CELL DISTRIBUTION WIDTH 15.9 % (11.7-14.4)
[2021-08-30 06:16] LABS: HEMOGLOBIN 6.4 g/dL (14.0-18.0)
[2021-08-30 06:33] LABS: ALBUMIN/GLOBULIN RATIO 0.4 (0.8-2.0); CALCIUM 8.7 mg/dL (8.4-10.2); CREATININE, SERUM 0.55 mg/dL (0.72-1.25)
[2021-08-30] MEDS ORDERED: SODIUM CHLORIDE 0.9% 250ML 250 ML IV ONE (06:45)
[2021-08-30] MEDS: DOCUSATE SODIUM LIQD 100 MG/10 ML UDC NG SCH ×2 (08:42→17:00)
[2021-08-30] MEDS: ENOXAPARIN SODIUM INJ 100 MG/ML SYR SC SCH ×2 (08:42→21:25)
[2021-08-30] MEDS: BALSAM PERU/CASTOR OIL 60 GM OINT...G. TP SCH (08:42)
[2021-08-30] MEDS: ROCURONIUM 1250MG/NS 250 250 ML IV SCH (08:44)
[2021-08-30 08:56] LABS: ABG PH 7.23 (7.35-7.45)
[2021-08-30 08:57] LABS: ABG HCO3 40 mmol/L (22-26); ABG PCO2 95 mmHg (35-45); ABG PO2 73 mmHg (80-105); ABG TCO2 43
[2021-08-30 09:09] LABS: BAND NEUTROPHILS % (MANUAL) 1 %; EOSINOPHILS % (MANUAL) 4 % (0-7); LYMPHOCYTES % (MANUAL) 12 % (19-48); METAMYELOCYTES % (MANUAL) 1 % (0-0); MONOCYTES % (MANUAL) 1 % (3.4-9.0); MYELOCYTES % (MANUAL) 1 % (0-0); NEUTROPHILS % (MANUAL) 80 % (40-74); PLATELET ESTIMATE ADEQUATE
[2021-08-30 09:10] LABS: PLATELET MORPHOLOGY COMMENT FEW LARGE; POLYCHROMASIA FEW; RBC MORPHOLOGY COMMENT NORMAL
[2021-08-30] MEDS ORDERED: FENTANYL 2000MCG/NS 250 250 ML IV SCH (11:45)
[2021-08-30] MEDS ORDERED: MIDAZOLAM HCL 5MG/ML 10ML VIAL 100 ML IV PRN (11:45)
[2021-08-30] MEDS: FENTANYL 2000MCG/NS 250 250 ML IV PRN ×2 (12:12→19:59)
[2021-08-30] MEDS ORDERED: IOPAMIDOL 370 MG/ML 200 ML INFUS..BTL INJ ONE (12:36)
[2021-08-30] MEDS ORDERED: SODIUM CHLORIDE 0.9% 50ML 50 ML ONE (12:36)
[2021-08-30 17:36] LABS: ABG PH 7.17 (7.35-7.45)
[2021-08-30 17:37] LABS: ABG HCO3 40 mmol/L (22-26); ABG PCO2 110 mmHg (35-45); ABG PO2 45 mmHg (80-105); ABG TCO2 43
[2021-08-31] VITALS (25 sets, daily range): BP systolic 79–109; BP diastolic 48–62
[2021-08-31] MEDS: ROCURONIUM 1250MG/NS 250 250 ML IV SCH ×2 (01:50→12:19)
[2021-08-31] MEDS: FLUCONAZOLE 200 MG/100 ML 100 ML IV SCH (02:16)
[2021-08-31] MEDS: FENTANYL 2000MCG/NS 250 250 ML IV PRN ×3 (03:04→23:10)
[2021-08-31] MEDS: MIDAZOLAM HCL 5MG/ML 10ML VIAL 100 ML IV PRN ×4 (03:05→22:45)
[2021-08-31] MEDS: LINEZOLID 600 MG/D5W 300ML 300 ML IV SCH ×2 (03:21→15:00)
[2021-08-31] MEDS: CEFEPIME 2 GM in SODIUM CHLORIDE 0.9% 100 ML IV SCH ×3 (06:00→21:47)
[2021-08-31 06:47] LABS: BASOPHILS % 0.7 % (0.0-1.0); EOSINOPHILS % 0.7 % (0.0-6.0); HEMATOCRIT 22.3 % (38.2-49.6); MEAN CORPUSCULAR HEMOGLOBIN 31.5 pg (28-32); MEAN CORPUSCULAR VOLUME 104.7 fL (81-99); MONOCYTES % 6.8 % (4.4-11.3); NEUTROPHILS % 70.9 % (38.7-80.0); PLATELET COUNT 408 x10e3/uL (140-360); RED BLOOD COUNT 2.13 x10e6/uL (4.3-5.7); RED CELL DISTRIBUTION WIDTH 17.5 % (11.7-14.4)
[2021-08-31 06:48] LABS: BASOPHILS # (AUTO) 0.2 (0.0-0.1); EOSINOPHILS # (AUTO) 0.2 (0.0-0.4); LYMPHOCYTES # (AUTO) 2.8 (1.0-3.2); MONOCYTES # (AUTO) 2.4 (0.2-0.8); NEUTROPHILS # (AUTO) 24.3 (2.1-6.9)
[2021-08-31 06:55] LABS: HEMOGLOBIN 6.7 g/dL (14.0-18.0)
[2021-08-31 07:05] LABS: ALBUMIN/GLOBULIN RATIO 0.4 (0.8-2.0); ANION GAP 14.6 mmol/L (8-16); CALCIUM 8.8 mg/dL (8.4-10.2); CREATININE, SERUM 0.75 mg/dL (0.72-1.25); POTASSIUM 5.6 mmol/L (3.5-5.1)
[2021-08-31] MEDS ORDERED: SODIUM CHLORIDE 0.9% 250ML 250 ML IV ONE (07:15)
[2021-08-31] MEDS: PROPOFOL IV EMULSION 10MG/ML 100 ML IV SCH ×3 (07:27→23:30)
[2021-08-31] MEDS: ENOXAPARIN SODIUM INJ 100 MG/ML SYR SC SCH ×2 (08:52→21:47)
[2021-08-31 08:55] LABS: ABG HCO3 39 mmol/L (22-26); ABG PCO2 100 mmHg (35-45); ABG PO2 51 mmHg (80-105); ABG TCO2 42
[2021-08-31] MEDS: DOCUSATE SODIUM LIQD 100 MG/10 ML UDC NG SCH ×2 (09:29→18:44)
[2021-08-31] MEDS: BALSAM PERU/CASTOR OIL 60 GM OINT...G. TP SCH (09:29)
[2021-08-31 09:53] LABS: BAND NEUTROPHILS % (MANUAL) 4 %; LYMPHOCYTES % (MANUAL) 7 % (19-48); METAMYELOCYTES % (MANUAL) 2 % (0-0); MONOCYTES % (MANUAL) 10 % (3.4-9.0); MYELOCYTES % (MANUAL) 3 % (0-0); NEUTROPHILS % (MANUAL) 74 % (40-74); NUCLEATED RED BLOOD CELLS 6; PLATELET ESTIMATE ADEQUATE; PLATELET MORPHOLOGY COMMENT MODERATE LARGE; RBC MORPHOLOGY COMMENT NORMAL
[2021-08-31 09:54] LABS: POLYCHROMASIA FEW
[2021-08-31] MEDS: NOREPINEPHRINE 8 MG/D5W 250 ML 250 ML IV PRN ×2 (19:15→23:55)
[2021-09-01] VITALS (25 sets, daily range): BP systolic 86–136; BP diastolic 42–67
[2021-09-01] MEDS: FLUCONAZOLE 200 MG/100 ML 100 ML IV SCH (01:30)
[2021-09-01] MEDS: ROCURONIUM 1250MG/NS 250 250 ML IV SCH ×2 (02:00→13:45)
[2021-09-01] MEDS: LINEZOLID 600 MG/D5W 300ML 300 ML IV SCH ×2 (03:36→17:09)
[2021-09-01] MEDS: MIDAZOLAM HCL 5MG/ML 10ML VIAL 100 ML IV PRN ×3 (04:20→20:12)
[2021-09-01] MEDS: NOREPINEPHRINE 8 MG/D5W 250 ML 250 ML IV PRN ×4 (04:34→23:24)
[2021-09-01] MEDS: CEFEPIME 2 GM in SODIUM CHLORIDE 0.9% 100 ML IV SCH ×3 (06:08→22:07)
[2021-09-01] MEDS: FENTANYL 2000MCG/NS 250 250 ML IV PRN ×3 (06:15→20:35)
[2021-09-01 06:27] LABS: BASOPHILS # (AUTO) 0.1 (0.0-0.1); BASOPHILS % 0.3 % (0.0-1.0); EOSINOPHILS # (AUTO) 0.6 (0.0-0.4); EOSINOPHILS % 1.6 % (0.0-6.0); HEMOGLOBIN 7.1 g/dL (14.0-18.0); LYMPHOCYTES # (AUTO) 2.1 (1.0-3.2); LYMPHOCYTES % 5.6 % (18.0-39.1); MEAN CORPUSCULAR HEMOGLOBIN 31.4 pg (28-32); MEAN CORPUSCULAR HGB CONC 30.9 g/dL (31-35); MEAN CORPUSCULAR VOLUME 101.8 fL (81-99); MONOCYTES # (AUTO) 2.5 (0.2-0.8); MONOCYTES % 6.8 % (4.4-11.3); NEUTROPHILS % 73.6 % (38.7-80.0); PLATELET COUNT 340 x10e3/uL (140-360); RED BLOOD COUNT 2.26 x10e6/uL (4.3-5.7); RED CELL DISTRIBUTION WIDTH 18.6 % (11.7-14.4)
[2021-09-01 06:39] LABS: ALBUMIN 2.1 g/dL (3.5-5.0); ALBUMIN/GLOBULIN RATIO 0.4 (0.8-2.0); ANION GAP 14.7 mmol/L (8-16); CALCIUM 8.3 mg/dL (8.4-10.2); CREATININE, SERUM 1.05 mg/dL (0.72-1.25); POTASSIUM 4.7 mmol/L (3.5-5.1)
[2021-09-01 08:50] LABS: ABG PH 7.17 (7.35-7.45)
[2021-09-01 08:51] LABS: ABG HCO3 31 mmol/L (22-26); ABG PCO2 85 mmHg (35-45); ABG PO2 88 mmHg (80-105); ABG TCO2 34
[2021-09-01] MEDS: BALSAM PERU/CASTOR OIL 60 GM OINT...G. TP SCH (09:45)
[2021-09-01] MEDS: ENOXAPARIN SODIUM INJ 100 MG/ML SYR SC SCH ×2 (09:45→21:30)
[2021-09-01] MEDS: DOCUSATE SODIUM LIQD 100 MG/10 ML UDC NG SCH ×2 (09:45→17:09)
[2021-09-01] MEDS: PROPOFOL IV EMULSION 10MG/ML 100 ML IV SCH ×3 (10:20→20:10)
[2021-09-01 12:21] LABS: BAND NEUTROPHILS % (MANUAL) 2 %; LYMPHOCYTES % (MANUAL) 13 % (19-48); METAMYELOCYTES % (MANUAL) 1 % (0-0); MONOCYTES % (MANUAL) 2 % (3.4-9.0); NEUTROPHILS % (MANUAL) 82 % (40-74); NUCLEATED RED BLOOD CELLS 8; PLATELET ESTIMATE ADEQUATE; PLATELET MORPHOLOGY COMMENT NORMAL; RBC MORPHOLOGY COMMENT NORMAL
[2021-09-02] VITALS (28 sets, daily range): BP systolic 101–126; BP diastolic 48–62
[2021-09-02] MEDS: MIDAZOLAM HCL 5MG/ML 10ML VIAL 100 ML IV PRN ×3 (01:20→21:49)
[2021-09-02] MEDS: PROPOFOL IV EMULSION 10MG/ML 100 ML IV SCH ×2 (01:35→11:13)
[2021-09-02] MEDS: LINEZOLID 600 MG/D5W 300ML 300 ML IV SCH ×2 (03:00→13:54)
[2021-09-02] MEDS: FENTANYL 2000MCG/NS 250 250 ML IV PRN ×3 (03:46→18:11)
[2021-09-02] MEDS: CEFEPIME 2 GM in SODIUM CHLORIDE 0.9% 100 ML IV SCH ×3 (06:15→21:46)
[2021-09-02] MEDS: ENOXAPARIN SODIUM INJ 100 MG/ML SYR SC SCH ×2 (08:32→21:46)
[2021-09-02] MEDS: DOCUSATE SODIUM LIQD 100 MG/10 ML UDC NG SCH ×2 (08:32→16:57)
[2021-09-02] MEDS: BALSAM PERU/CASTOR OIL 60 GM OINT...G. TP SCH (08:32)
[2021-09-02] MEDS: NOREPINEPHRINE 8 MG/D5W 250 ML 250 ML IV PRN ×3 (08:42→22:11)
[2021-09-02 09:37] LABS: ABG PH 7.17 (7.35-7.45)
[2021-09-02 09:38] LABS: ABG HCO3 26 mmol/L (22-26); ABG PCO2 71 mmHg (35-45); ABG PO2 67 mmHg (80-105); ABG TCO2 28
[2021-09-02 10:45] LABS: BASOPHILS # (AUTO) 0.2 (0.0-0.1); BASOPHILS % 0.6 % (0.0-1.0); EOSINOPHILS % 2.6 % (0.0-6.0); HEMATOCRIT 21.2 % (38.2-49.6); LYMPHOCYTES # (AUTO) 1.8 (1.0-3.2); MEAN CORPUSCULAR HEMOGLOBIN 31.4 pg (28-32); MEAN CORPUSCULAR HGB CONC 31.1 g/dL (31-35); MONOCYTES # (AUTO) 2.2 (0.2-0.8); NEUTROPHILS # (AUTO) 27.2 (2.1-6.9); NEUTROPHILS % 74.5 % (38.7-80.0); PLATELET COUNT 307 x10e3/uL (140-360); RED CELL DISTRIBUTION WIDTH 18.4 % (11.7-14.4)
[2021-09-02 11:05] LABS: HEMOGLOBIN 6.6 g/dL (14.0-18.0)
[2021-09-02 11:13] LABS: ALBUMIN/GLOBULIN RATIO 0.4 (0.8-2.0); ANION GAP 15.1 mmol/L (8-16); CALCIUM 8.3 mg/dL (8.4-10.2); CREATININE, SERUM 1.69 mg/dL (0.72-1.25); POTASSIUM 5.1 mmol/L (3.5-5.1)
[2021-09-02] MEDS ORDERED: SODIUM CHLORIDE 0.9% 250ML 250 ML IV NR (11:30)
[2021-09-02 12:16] LABS: BAND NEUTROPHILS % (MANUAL) 7 %; EOSINOPHILS % (MANUAL) 2 % (0-7); LYMPHOCYTES % (MANUAL) 4 % (19-48); MONOCYTES % (MANUAL) 4 % (3.4-9.0); NEUTROPHILS % (MANUAL) 83 % (40-74)
[2021-09-02] MEDS ORDERED: HEPARIN SOD (PORCINE) 5,000 UNIT/ML VIAL ONE (16:31)
[2021-09-02] MEDS: ROCURONIUM 1250MG/NS 250 250 ML IV SCH (18:11)
[2021-09-03] VITALS (27 sets, daily range): BP systolic 101–124; BP diastolic 49–69
[2021-09-03] MEDS: FENTANYL 2000MCG/NS 250 250 ML IV PRN ×2 (00:53→08:06)
[2021-09-03] MEDS: LINEZOLID 600 MG/D5W 300ML 300 ML IV SCH ×2 (02:30→12:13)
[2021-09-03] MEDS: MIDAZOLAM HCL 5MG/ML 10ML VIAL 100 ML IV PRN ×3 (02:36→18:24)
[2021-09-03] MEDS: NOREPINEPHRINE 8 MG/D5W 250 ML 250 ML IV PRN ×3 (02:46→12:00)
[2021-09-03] MEDS: CEFEPIME 2 GM in SODIUM CHLORIDE 0.9% 100 ML IV SCH (05:27)
[2021-09-03 06:52] LABS: BASOPHILS # (AUTO) 0.2 (0.0-0.1); BASOPHILS % 0.8 % (0.0-1.0); EOSINOPHILS # (AUTO) 0.6 (0.0-0.4); EOSINOPHILS % 1.9 % (0.0-6.0); HEMOGLOBIN 7.2 g/dL (14.0-18.0); LYMPHOCYTES # (AUTO) 1.6 (1.0-3.2); LYMPHOCYTES % 5.2 % (18.0-39.1); MEAN CORPUSCULAR HEMOGLOBIN 30.6 pg (28-32); MEAN CORPUSCULAR HGB CONC 31.3 g/dL (31-35); MEAN CORPUSCULAR VOLUME 97.9 fL (81-99); MONOCYTES # (AUTO) 1.7 (0.2-0.8); MONOCYTES % 5.5 % (4.4-11.3); NEUTROPHILS # (AUTO) 23.4 (2.1-6.9); NEUTROPHILS % 76.3 % (38.7-80.0); PLATELET COUNT 271 x10e3/uL (140-360); RED BLOOD COUNT 2.35 x10e6/uL (4.3-5.7); RED CELL DISTRIBUTION WIDTH 18.7 % (11.7-14.4)
[2021-09-03 07:17] LABS: ALBUMIN 1.8 g/dL (3.5-5.0); ALBUMIN/GLOBULIN RATIO 0.4 (0.8-2.0); ANION GAP 16.4 mmol/L (8-16); CALCIUM 7.7 mg/dL (8.4-10.2); CREATININE, SERUM 2.03 mg/dL (0.72-1.25); POTASSIUM 5.4 mmol/L (3.5-5.1)
[2021-09-03] MEDS: ROCURONIUM 1250MG/NS 250 250 ML IV SCH (08:23)
[2021-09-03] MEDS: BALSAM PERU/CASTOR OIL 60 GM OINT...G. TP SCH (08:25)
[2021-09-03] MEDS: DOCUSATE SODIUM LIQD 100 MG/10 ML UDC NG SCH ×2 (08:29→18:06)
[2021-09-03] MEDS: ENOXAPARIN SODIUM INJ 100 MG/ML SYR SC SCH (08:29)
[2021-09-03 08:50] LABS: BAND NEUTROPHILS % (MANUAL) 2 %; EOSINOPHILS % (MANUAL) 4 % (0-7); LYMPHOCYTES % (MANUAL) 8 % (19-48); METAMYELOCYTES % (MANUAL) 1 % (0-0); MONOCYTES % (MANUAL) 6 % (3.4-9.0); MYELOCYTES % (MANUAL) 1 % (0-0); NEUTROPHILS % (MANUAL) 77 % (40-74); NUCLEATED RED BLOOD CELLS 11; PLATELET ESTIMATE ADEQUATE
[2021-09-03 08:51] LABS: PLATELET MORPHOLOGY COMMENT MODERATE GIANT; RBC MORPHOLOGY COMMENT ABNORMAL
[2021-09-03 08:52] LABS: POLYCHROMASIA FEW
[2021-09-03 09:04] LABS: ABG HCO3 22 mmol/L (22-26); ABG PCO2 63 mmHg (35-45); ABG PH 7.15 (7.35-7.45); ABG PO2 81 mmHg (80-105); ABG TCO2 24
[2021-09-03] MEDS: PROPOFOL IV EMULSION 10MG/ML 100 ML IV SCH ×2 (10:00→14:15)
[2021-09-03] MEDS ORDERED: ACETAMINOPHEN 325 MG TAB PO STA (11:24)
[2021-09-03] MEDS ORDERED: SODIUM CHLORIDE 0.9% 250ML 250 ML IV NR (11:30)
[2021-09-03] MEDS: MEROPENEM 500 MG in SODIUM CHLORIDE 0.9% 50ML 50 ML IV SCH (12:32)
[2021-09-03] MEDS ORDERED: SOD POLYSTYRENE SULFONATE SUSP 15 GM/60 ML BTL PO NR (13:30)
[2021-09-03] MEDS ORDERED: FUROSEMIDE INJ 10 MG/ML 4 ML VIAL IV NR (13:30)
[2021-09-03 13:56] LABS: ABG HCO3 20 mmol/L (22-26); ABG PCO2 53 mmHg (35-45); ABG PH 7.18 (7.35-7.45); ABG PO2 61 mmHg (80-105)
[2021-09-03 13:57] LABS: ABG TCO2 21
[2021-09-03] MEDS ORDERED: VASOPRESSIN 60 UNIT in DEXTROSE 5% 50ML 57 ML IV STA (14:25)
[2021-09-03] MEDS: METRONIDAZOLE 500MG/NS 100ML 100 ML IV SCH (14:25)
[2021-09-03 14:44] LABS: BASOPHILS # (AUTO) 0.1 (0.0-0.1); BASOPHILS % 0.3 % (0.0-1.0); EOSINOPHILS # (AUTO) 0.5 (0.0-0.4); EOSINOPHILS % 2.7 % (0.0-6.0); LYMPHOCYTES % 4.7 % (18.0-39.1); MEAN CORPUSCULAR HEMOGLOBIN 30.9 pg (28-32); MEAN CORPUSCULAR HGB CONC 28.8 g/dL (31-35); MEAN CORPUSCULAR VOLUME 107.3 fL (81-99); MONOCYTES # (AUTO) 0.9 (0.2-0.8); MONOCYTES % 4.5 % (4.4-11.3); NEUTROPHILS # (AUTO) 15.5 (2.1-6.9); NEUTROPHILS % 77.2 % (38.7-80.0); PLATELET COUNT 189 x10e3/uL (140-360); RED BLOOD COUNT 1.65 x10e6/uL (4.3-5.7); RED CELL DISTRIBUTION WIDTH 20.2 % (11.7-14.4)
[2021-09-03 14:53] LABS: HEMATOCRIT 17.7 % (38.2-49.6); HEMOGLOBIN 5.1 g/dL (14.0-18.0)
[2021-09-03] MEDS: MICAFUNGIN SODIUM 100 ML IV SCH (14:56)
[2021-09-03] MEDS ORDERED: VASOPRESSIN 60 UNIT in DEXTROSE 5% 50ML 57 ML IV PRN (15:30)
[2021-09-03] MEDS ORDERED: SODIUM CHLORIDE 0.9% 250ML 250 ML IV ONE ×2 (15:30→16:00)
[2021-09-03 17:21] LABS: BAND NEUTROPHILS % (MANUAL) 16 %; EOSINOPHILS % (MANUAL) 4 % (0-7); LYMPHOCYTES % (MANUAL) 8 % (19-48); METAMYELOCYTES % (MANUAL) 2 % (0-0); MONOCYTES % (MANUAL) 4 % (3.4-9.0); MYELOCYTES % (MANUAL) 2 % (0-0); NEUTROPHILS % (MANUAL) 62 % (40-74); NUCLEATED RED BLOOD CELLS 6; POLYCHROMASIA FEW
[2021-09-04] VITALS (16 sets, daily range): BP systolic 70–117; BP diastolic 44–68
[2021-09-04] MEDS: MEROPENEM 500 MG in SODIUM CHLORIDE 0.9% 50ML 50 ML IV SCH ×2 (00:20→11:16)
[2021-09-04] MEDS: METRONIDAZOLE 500MG/NS 100ML 100 ML IV SCH ×2 (00:20→06:38)
[2021-09-04] MEDS: ENOXAPARIN SODIUM INJ 100 MG/ML SYR SC SCH ×2 (00:20→08:35)
[2021-09-04 01:08] LABS: BASOPHILS # (AUTO) 0.2 (0.0-0.1); BASOPHILS % 0.8 % (0.0-1.0); EOSINOPHILS # (AUTO) 0.7 (0.0-0.4); EOSINOPHILS % 2.4 % (0.0-6.0); HEMATOCRIT 26.7 % (38.2-49.6); HEMOGLOBIN 8.6 g/dL (14.0-18.0); LYMPHOCYTES # (AUTO) 1.2 (1.0-3.2); LYMPHOCYTES % 4.3 % (18.0-39.1); MEAN CORPUSCULAR HEMOGLOBIN 30.5 pg (28-32); MEAN CORPUSCULAR HGB CONC 32.2 g/dL (31-35); MEAN CORPUSCULAR VOLUME 94.7 fL (81-99); MONOCYTES # (AUTO) 1.8 (0.2-0.8); MONOCYTES % 6.4 % (4.4-11.3); NEUTROPHILS # (AUTO) 20.2 (2.1-6.9); PLATELET COUNT 228 x10e3/uL (140-360); RED BLOOD COUNT 2.82 x10e6/uL (4.3-5.7); RED CELL DISTRIBUTION WIDTH 19.3 % (11.7-14.4)
[2021-09-04 01:27] LABS: ALBUMIN 1.8 g/dL (3.5-5.0); ALBUMIN/GLOBULIN RATIO 0.4 (0.8-2.0); ANION GAP 16.9 mmol/L (8-16); CALCIUM 7.7 mg/dL (8.4-10.2); CREATININE, SERUM 2.36 mg/dL (0.72-1.25); POTASSIUM 5.9 mmol/L (3.5-5.1)
[2021-09-04] MEDS: LINEZOLID 600 MG/D5W 300ML 300 ML IV SCH (05:17)
[2021-09-04 07:04] LABS: BASOPHILS # (AUTO) 0.2 (0.0-0.1); BASOPHILS % 0.6 % (0.0-1.0); EOSINOPHILS # (AUTO) 0.7 (0.0-0.4); EOSINOPHILS % 2.5 % (0.0-6.0); HEMATOCRIT 26.5 % (38.2-49.6); HEMOGLOBIN 8.6 g/dL (14.0-18.0); LYMPHOCYTES # (AUTO) 1.1 (1.0-3.2); LYMPHOCYTES % 3.9 % (18.0-39.1); MEAN CORPUSCULAR HEMOGLOBIN 30.3 pg (28-32); MEAN CORPUSCULAR HGB CONC 32.5 g/dL (31-35); MEAN CORPUSCULAR VOLUME 93.3 fL (81-99); MONOCYTES # (AUTO) 1.7 (0.2-0.8); NEUTROPHILS # (AUTO) 20.6 (2.1-6.9); PLATELET COUNT 236 x10e3/uL (140-360); RED BLOOD COUNT 2.84 x10e6/uL (4.3-5.7); RED CELL DISTRIBUTION WIDTH 19.4 % (11.7-14.4)
[2021-09-04 07:23] LABS: ALBUMIN 1.8 g/dL (3.5-5.0); ANION GAP 17.9 mmol/L (8-16); BILIRUBIN,DIRECT 5.4 mg/dL (0.0-0.5); CALCIUM 7.6 mg/dL (8.4-10.2); CREATININE, SERUM 2.46 mg/dL (0.72-1.25); POTASSIUM 5.9 mmol/L (3.5-5.1)
[2021-09-04] MEDS: DOCUSATE SODIUM LIQD 100 MG/10 ML UDC NG SCH (08:34)
[2021-09-04] MEDS: BALSAM PERU/CASTOR OIL 60 GM OINT...G. TP SCH (08:35)
[2021-09-04 08:55] LABS: BAND NEUTROPHILS % (MANUAL) 2 %; EOSINOPHILS % (MANUAL) 2 % (0-7); LYMPHOCYTES % (MANUAL) 6 % (19-48); METAMYELOCYTES % (MANUAL) 5 % (0-0); MONOCYTES % (MANUAL) 4 % (3.4-9.0); MYELOCYTES % (MANUAL) 18 % (0-0); NEUTROPHILS % (MANUAL) 62 % (40-74); NUCLEATED RED BLOOD CELLS 8; PROMYELOCYTES % (MANUAL) 1 % (0-0)
[2021-09-04 08:56] LABS: ANISOCYTOSIS MODERATE; PLATELET ESTIMATE ADEQUATE; PLATELET MORPHOLOGY COMMENT NORMAL; POLYCHROMASIA FEW; RBC MORPHOLOGY COMMENT ABNORMAL
[2021-09-04 08:57] LABS: ABG PCO2 63 mmHg (35-45); ABG PO2 46 mmHg (80-105)
[2021-09-04 08:58] LABS: ABG HCO3 20 mmol/L (22-26); ABG TCO2 21
[2021-09-04] MEDS: FENTANYL 2000MCG/NS 250 250 ML IV PRN (11:00)
[2021-09-04] MEDS: PROPOFOL IV EMULSION 10MG/ML 100 ML IV SCH (11:00)
[2021-09-04] MEDS: ROCURONIUM 1250MG/NS 250 250 ML IV SCH (11:00)
[2021-09-04] MEDS: MICAFUNGIN SODIUM 100 ML IV SCH (11:16)
[2021-09-04] MEDS: NOREPINEPHRINE 8 MG/D5W 250 ML 250 ML IV PRN (11:56)
[2021-09-04] MEDS ORDERED: SODIUM CHLORIDE 0.9% 1000ML 1,000 ML ONE (12:36)
[2021-09-04] MEDS ORDERED: LORAZEPAM INJ 2 MG/ML VIAL IV PRN (13:00)
[2021-09-04] MEDS ORDERED: MORPHINE SULFATE INJ 2 MG/ML SYR IV PRN (13:00)
[2021-09-04] MEDS: MIDAZOLAM HCL 5MG/ML 10ML VIAL 100 ML IV PRN (14:45)
== END 2021-09-04 22:37 | disposition expired | DRG 207 ==
LOC: ER 19:20 → ERHOLD 22:33 → ICU 07-26 12:35 → COVIDICU 08-01 17:55
PROVIDERS: ADMIT Internal Medicine; ATTEND Internal Medicine
PROC: 0BH17EZ Insertion of Endotracheal Airway into Trachea, Via Natural or Artificial Opening (ICD-10-PCS; principal; 2021-07-21)
PROC: 5A1955Z Respiratory Ventilation, Greater than 96 Consecutive Hours (ICD-10-PCS; 2021-07-21)
PROC: 5A0955A Assistance with Respiratory Ventilation, Greater than 96 Consecutive Hours, High Flow/Velocity Cannula (ICD-10-PCS; 2021-07-21)
PROC: 8E0ZXY6 Isolation (ICD-10-PCS; 2021-07-21)
PROC: XW043E5 Introduction of Remdesivir Anti-infective into Central Vein, Percutaneous Approach, New Technology Group 5 (ICD-10-PCS; 2021-07-21)
PROC: 02HV33Z Insertion of Infusion Device into Superior Vena Cava, Percutaneous Approach (ICD-10-PCS; 2021-07-23)
PROC: 02HV33Z Insertion of Infusion Device into Superior Vena Cava, Percutaneous Approach (ICD-10-PCS; 2021-07-25)
PROC: 30243N1 Transfusion of Nonautologous Red Blood Cells into Central Vein, Percutaneous Approach (ICD-10-PCS; 2021-07-25)
PROC: 4A133B3 Monitoring of Arterial Pressure, Pulmonary, Percutaneous Approach (ICD-10-PCS; 2021-08-01)
PROC: 0B968ZZ Drainage of Right Lower Lobe Bronchus, Via Natural or Artificial Opening Endoscopic (ICD-10-PCS; 2021-08-03)
PROC: 0B958ZZ Drainage of Right Middle Lobe Bronchus, Via Natural or Artificial Opening Endoscopic (ICD-10-PCS; 2021-08-03)
PROC: 0B938ZZ Drainage of Right Main Bronchus, Via Natural or Artificial Opening Endoscopic (ICD-10-PCS; 2021-08-03)
PROC: 02HV33Z Insertion of Infusion Device into Superior Vena Cava, Percutaneous Approach (ICD-10-PCS; 2021-08-06)
PROC: 5A1D70Z Performance of Urinary Filtration, Intermittent, Less than 6 Hours Per Day (ICD-10-PCS; 2021-08-25)
DX: U07.1 COVID-19 (principal); J12.82 Pneumonia due to coronavirus disease 2019; A41.9 Sepsis, unspecified organism; R65.21 Severe sepsis with septic shock; J80 Acute respiratory distress syndrome; K29.01 Acute gastritis with bleeding; J15.9 Unspecified bacterial pneumonia; E87.1 Hypo-osmolality and hyponatremia; E87.2 Acidosis; E87.4 Mixed disorder of acid-base balance; D62 Acute posthemorrhagic anemia; I82.623 Acute embolism and thrombosis of deep veins of upper extremity, bilateral; N17.9 Acute kidney failure, unspecified; B19.9 Unspecified viral hepatitis without hepatic coma; Z68.41 Body mass index [BMI] 40.0-44.9, adult; I10 Essential (primary) hypertension; E88.09 Other disorders of plasma-protein metabolism, not elsewhere classified; E87.6 Hypokalemia; E66.01 Morbid (severe) obesity due to excess calories; E87.5 Hyperkalemia; E87.8 Other disorders of electrolyte and fluid balance, not elsewhere classified; R31.9 Hematuria, unspecified
CPT/HCPCS: 36415; 36569; 36600; 71045; 71260; 74018; 74177; 76700; 80048; 80053; 80076; 80202; 82550; 82553; 82728; 82805; 82948; 83615; 83735; 84484; 85014; 85018; 85025; 86140; 86704; 86706; 86850; 86900; 86920; 87040; 87070; 87205; 87340; 90962; 93005; 93970; 94002; 94003; 99251; 99285; J0330; J0456; J0692; J0696; J1450; J1644; J1650; J1940; J2020; J2185; J2248; J2543; J2930; J3370; J3480; J7030; J7050; J7121; P9016; P9047; Q9967; U0002